=== PATIENT | female | born 1935 | race Caucasian/White ===

== ENCOUNTER 2017-01-28 14:25 | Observation (INO) | payer MEDICARE, OTHER ==
[~2017-01-28] VITALS: Ht 157.5 cm; Wt 63.5 kg
[~2017-01-28 14:25] MED LIST: ASPI325T PO; ATOR10TA PO; CLOP75 PO; DIOV320T PO; MECL25; NITR.4 SL; PROM25TA5 PO; VITA400T14 PO
[2017-01-28 14:28] VITALS: BP 223/101; PULSE 103; RESP 18; TEMP 97.8; O2SAT 95
[2017-01-28 15:04] VITALS: BP 198/86; PULSE 82; RESP 18; O2SAT 98
--- NOTE | 2017-01-28 15:20 | PD ---
HPI Chief Complaint: Chest Pain Time Seen by Provider: 15:07 Travel History International Travel<30 days: No Contact w/Intl Traveler<30days: No Traveled to known affect area: No History of Present Illness HPI 81-year-old female came to the emergency room with history of dizziness and chest discomfort. Also her blood pressure has been running high. Patient attributes all this to the GoLYTELY that she has started taking for bowel prep for her colonoscopy. Her blood pressure was more than 190 systolic in triage. She says she has a headache as well. The chest pain she said she couldn't describe but just feels like it is there and pointed to the left side of her chest. Patient is elderly and seemed anxious. Her headache is bitemporal. None of the pains are radiating. 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 [facility] Past Medical History Narrative Medical List of her past medical, surgical, social and family history is reviewed from the nursing note. 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 weather) Coronary Artery Disease: Yes Diabetes: No Diminished Hearing: No Endocrine: No Gastrointestinal Disorders: Yes GERD: Yes Genitourinary: No Hiatal Hernia: No Hypertension: Yes Immune Disorder: No Implanted Vascular Access Dvce: Yes Musculoskeletal: No Neurologic: No Psychiatric: No Reproductive: No Respiratory: Yes Immunizations Current: No Myocardial Infarction: No Sleep Apnea: No Ulcer: Yes Menopausal: Yes Past Surgical History AICD: Yes Body Medical Devices: RODS IN BOTH LOWER EXTREMITIES Cholecystectomy: Yes Coronary Artery Bypass Graft: No Coronary Stent: Yes (MULTIPLE PROCEDURES) Genitourinary Surgery: Yes (BLADDER REPAIR) Hysterectomy: Yes Pacemaker: Yes Tonsillectomy: Yes Other Surgery: Yes (bladder repair, femoral hardik placement, hysterectomy, tonsillectomy) Social History Alcohol Use: No Tobacco Use: No Substance Use: No Allergies-Medications (Allergen,Severity, Reaction): Coded Allergies: Achromycin V (Verified Allergy, Severe, SOB, HIVES, 01/28/17) Amoxicillin (Verified Allergy, Severe, ANAPHYLAXIS, 01/28/17) Ampicillin (Verified Allergy, Severe, SOB, HIVES, 01/28/17) Bactrim (Verified Allergy, Severe, SOB, HIVES, 01/28/17) Benadryl (Verified Allergy, Severe, SOB, HIVES, 01/28/17) E-Mycin (Verified Allergy, Severe, SOB, HIVES, 01/28/17) Keflex (Verified Allergy, Severe, SOB, HIVES, 01/28/17) Macrodantin (Verified Allergy, Severe, SOB, HIVES, 01/28/17) Penicillin (Verified Allergy, Severe, ANAPHYLAXIS, 01/28/17) Pyridium (Verified Allergy, Severe, SOB, HIVES, 01/28/17) Codeine (Verified Allergy, Intermediate, HIVES, 01/28/17) Adenosine (Verified Allergy, Unknown, 01/28/17) PT DOESN'T RECALL Avelox (Verified Allergy, Unknown, 01/28/17) PT DOESN'T RECALL Contrast Media (Verified Allergy, Unknown, 01/28/17) PT DOESN'T RECALL Comments List of her allergies reviewed from the nursing note. Reported Meds & Prescriptions Reported Meds & Active Scripts Active Reported Promethazine (Promethazine HCl) 12.5 Mg Tab 12.5 Mg PO Q6H PRN Diovan (Valsartan) 320 Mg Tab 320 Mg PO DAILY Nitrostat SL (Nitroglycerin) 0.4 Mg Subl 0.4 Mg SL DIRECTED PRN 1 tablet under the tongue as needed for chest pain. Repeat every 5 minutes for a total of 3 DOSES or call 911 if NO relief. Meclizine (Meclizine HCl) 25 Mg Chew 25 Mg CHEW DIRECTED PRN Ergocalciferol 50,000 Unit Cap 50,000 Units PO Q7D Plavix (Clopidogrel Bisulfate) 75 Mg Tab 75 Mg PO DAILY Narrative Medication List of her home medications reviewed from the nursing note. Review of Systems Except as stated in HPI: all other systems reviewed are Neg Physical Exam Narrative GENERAL: Awake, alert, elderly, anxious, mild distress SKIN: Warm and dry. HEAD: Atraumatic. Normocephalic. EYES: Pupils equal and round. No scleral icterus. No injection or drainage. ENT: No nasal bleeding or discharge. Mucous membranes pink and moist. NECK: Trachea midline. No JVD. CARDIOVASCULAR: Regular rate and rhythm. No murmur appreciated. RESPIRATORY: No accessory muscle use. Clear to auscultation. Breath sounds equal bilaterally. GASTROINTESTINAL: Abdomen soft, non-tender, nondistended. Hepatic and splenic margins not palpable. MUSCULOSKELETAL: No obvious deformities. No clubbing. No cyanosis. No edema. NEUROLOGICAL: Awake and alert. No obvious cranial nerve deficits. Motor grossly within normal limits. Normal speech. PSYCHIATRIC: Appropriate mood and affect; insight and judgment normal. Data Data Last Documented VS Vital Signs Date Time Temp Pulse Resp B/P Pulse Ox O2 Delivery O2 Flow Rate FiO2 01/28/17 17:41 82 16 160/100 98 Room Air 01/28/17 14:28 97.8 Orders Electrocardiogram (01/28/17 ) Ckmb (Isoenzyme) Profile (01/28/17 14:55) Complete Blood Count With Diff (01/28/17 14:55) Comprehensive Metabolic Panel (01/28/17 14:55) Magnesium (Mg) (01/28/17 14:55) Prothrombin Time / Inr (Pt) (01/28/17 14:55) Act Partial Throm Time (Ptt) (01/28/17 14:55) Troponin I (01/28/17 14:55) Lipase (01/28/17 14:56) Chest, Pa & Lat (01/28/17 ) CKMB (01/28/17 15:22) CKMB% (01/28/17 15:22) Clonidine (Catapres) (01/28/17 16:45) Ct Brain W/O Iv Contrast(Rout) (01/28/17 ) Admit Order (Ed Use Only) (01/28/17 17:57) Labs Laboratory Tests Test 01/28/17 15:22 White Blood Count 8.6 TH/MM3 Red Blood Count 5.25 MIL/MM3 Hemoglobin 14.7 GM/DL Hematocrit 43.3 % Mean Corpuscular Volume 82.5 FL Mean Corpuscular Hemoglobin 27.9 PG Mean Corpuscular Hemoglobin 33.9 % Concent Red Cell Distribution Width 13.0 % Platelet Count 242 TH/MM3 Mean Platelet Volume 8.7 FL Neutrophils (%) (Auto) % Lymphocytes (%) (Auto) % Monocytes (%) (Auto) % Eosinophils (%) (Auto) % Basophils (%) (Auto) % Neutrophils # (Auto) TH/MM3 Lymphocytes # (Auto) TH/MM3 Monocytes # (Auto) TH/MM3 Eosinophils # (Auto) TH/MM3 Basophils # (Auto) TH/MM3 CBC Comment AUTO DIFF Differential Total Cells 100 Counted Neutrophils % (Manual) 78 % Band Neutrophils % 1 % Lymphocytes % 17 % Monocytes % 4 % Neutrophils # (Manual) 6.8 TH/MM3 Differential Comment FINAL DIFF MANUAL Platelet Estimate NORMAL Platelet Morphology Comment NORMAL Prothrombin Time 10.8 SEC Prothromb Time International 1.0 RATIO Ratio Activated Partial 28.8 SEC Thromboplast Time Sodium Level 139 MEQ/L Potassium Level 4.6 MEQ/L Chloride Level 101 MEQ/L Carbon Dioxide Level 28.0 MEQ/L Anion Gap 10 MEQ/L Blood Urea Nitrogen 7 MG/DL Creatinine 1.00 MG/DL Estimat Glomerular Filtration 53 ML/MIN Rate Random Glucose 92 MG/DL Calcium Level 9.7 MG/DL Magnesium Level 2.3 MG/DL Total Bilirubin 0.7 MG/DL Aspartate Amino Transf 22 U/L (AST/SGOT) Alanine Aminotransferase 16 U/L (ALT/SGPT) Alkaline Phosphatase 71 U/L Total Creatine Kinase 149 U/L Creatine Kinase MB 1.4 NG/ML Troponin I LESS THAN 0.02 NG/ML Total Protein 8.1 GM/DL Albumin 4.5 GM/DL Lipase 192 U/L [facility] Medical Decision Making Medical Screen Exam Complete: Yes Emergency Medical Condition: Yes Medical Record Reviewed: Yes Interpretation(s) Twelve-lead EKG was reviewed by me. Normal sinus rhythm, normal axis, left bundle branch block. Heart rate of 84 bpm. Differential Diagnosis ACS, intracranial bleed, non-STEMI, hypertension Narrative Course 5:19 PM blood test results of back and within normal limits. CAT scan of the head is waiting to be done and resulted. Procedures EKG Prior to Arrival: No Scripts Lactobacillus Acidophilus (Lactinex)1 Chew1 Tab CHEW DAILY #14 TAB Ref 0 Prov:Fransisca Vitale MD 01/31/17 Dicyclomine 10 Mg Cap10 Mg PO TID #30 CAP Ref 0 Prov:Fransisca Vitale MD 01/30/17 Jorge Prather MD Jan 28, 2017 15:20
[2017-01-28] MEDS ORDERED: PROM12.54 PO (15:30)
[2017-01-28] MEDS ORDERED: MECL25CH CHEW (15:30)
[2017-01-28] MEDS ORDERED: DIOV320T PO (15:30)
[2017-01-28] MEDS ORDERED: NITR0.4S SL (15:30)
[2017-01-28] MEDS ORDERED: PLAV75TA29 PO (15:30)
[2017-01-28] MEDS ORDERED: ERGO1CAP30 PO (15:30)
[2017-01-28 15:41] LABS: HEMATOCRIT 43.3 % (35.0-46.0); MEAN CELL VOLUME 82.5 FL (80.0-100.0); MEAN CORPUSCULAR HEMOGLOBIN 27.9 PG (27.0-34.0); MEAN CORPUSCULAR HGB CONC 33.9 % (32.0-36.0); PLATELET COUNT 242 TH/MM3 (150-450); RED BLOOD COUNT 5.25 MIL/MM3 (4.00-5.30); WHITE BLOOD COUNT 8.6 TH/MM3 (4.0-11.0)
--- NOTE | 2017-01-28 15:43 | RADRPT ---
EXAM DATE/TIME: 01/28/2017 15:46 [facility] COMPARISON: CHEST PA & LAT, September 29, 2014, 15:02. INDICATIONS : Chest pain. Short of breath. MEDICAL HISTORY : Myocardial infarction. Congestive heart failure. Coronary artery disease. Carcinoma, cervical. SURGICAL HISTORY : Pacemaker. Tonsillectomy. Cholecystectomy. Cardiac cath. Bladder repair. Bilateral knee repair. Loop recorder insertion. ENCOUNTER: Initial ACUITY: 2 days PAIN SCORE: 5/10 LOCATION: Left middle chest FINDINGS: PA and lateral views of the chest demonstrate the lungs to be symmetrically aerated without evidence of mass, infiltrate or effusion. The cardiomediastinal contours are unremarkable. Osseous structure s are intact. There is a loop recorder in the chest. CONCLUSION: No acute disease. Franky Bourne MD on January 28, 2017 at 15:39 Board Certified Radiologist. This report was verified electronically.
[2017-01-28 15:51] LABS: HEMO FLAGS AUTO DIFF
[2017-01-28 16:05] LABS: APTT (PATIENT) 28.8 SEC (24.3-30.1); PROTHROMBIN TIME - PATIENT 10.8 SEC (9.8-11.6)
[2017-01-28 16:20] LABS: ALKALINE PHOSPHATASE 71 U/L (45-117); ALT (GPT) 16 U/L (10-53); ANION GAP 10 MEQ/L (5-15); AST (GOT) 22 U/L (15-37); BLOOD UREA NITROGEN 7 MG/DL (7-18); CHLORIDE 101 MEQ/L (98-107); CREATINE KINASE 149 U/L (26-192); GLOMERULAR FILTRATION RATE 53 ML/MIN (>89); MAGNESIUM 2.3 MG/DL (1.5-2.5); POTASSIUM 4.6 MEQ/L (3.5-5.1); SODIUM (NA) 139 MEQ/L (136-145); TOTAL BILIRUBIN ADULT 0.7 MG/DL (0.2-1.0)
[2017-01-28 16:33] LABS: CKMB 1.4 NG/ML (0.5-3.6)
[2017-01-28] MEDS ORDERED: cloNIDine HCL 0.1 MG TAB PO ONE (16:45)
[2017-01-28 16:50] LABS: BANDS 1 % (0-6); NEUTROPHIL # MANUAL DIFF 6.8 TH/MM3 (1.8-7.7); POLYS (SEG NEUTROPHILS) 78 % (16-70); WBC DIFF SAMPLE 100
[2017-01-28 16:53] LABS: PLATELET ESTIMATE SMEAR NORMAL (NORMAL); PLATELET MORPHOLOGY NORMAL (NORMAL); SCAN/DIFF FINAL DIFF MANUAL
[2017-01-28 17:41] VITALS: BP 160/100; PULSE 82; RESP 16; O2SAT 98
--- NOTE | 2017-01-28 18:03 | RADRPT ---
EXAM DATE/TIME: 01/28/2017 17:34 [facility] COMPARISON: CT BRAIN W/O CONTRAST, May 03, 2014, 12:58. INDICATIONS : Dizziness. RADIATION DOSE: 33.44 CTDIvol (mGy) MEDICAL HISTORY : Cardiovascular disease. Hypertension. Carcinoma, not otherwise specified. SURGICAL HISTORY : Cholecystectomy. ENCOUNTER: Initial ACUITY: 1 day PAIN SCALE: 0/10 LOCATION: cranial TECHNIQUE: Multiple contiguous axial images were obtained of the head. Using automated exposure control and adj ustment of the mA and/or kV according to patient size, radiation dose was kept as low as reasonably a chievable to obtain optimal diagnostic quality images. FINDINGS: CEREBRUM: The ventricles are normal for age. No evidence of midline shift, mass lesion, hemorrhage or acute in farction. No extra-axial fluid collections are seen. POSTERIOR FOSSA: The cerebellum and brainstem are intact. The 4th ventricle is midline. The cerebellopontine angle i s unremarkable. EXTRACRANIAL: The visualized portion of the orbits is intact. SKULL: The calvaria is intact. No evidence of skull fracture. CONCLUSION: Stable exam compared to prior study. No evidence of acute infarct, hemorrhage, mass or edema. Intact calvarium. Jose Bishop MD on January 28, 2017 at 18:00 Board Certified Radiologist. This report was verified electronically.
[2017-01-28] MEDS ORDERED: BISACODYL 10 MG SUPP PR PRN (18:15)
[2017-01-28] MEDS ORDERED: MAGNESIUM HYDROXIDE SUSP 30 ML CUP PO PRN (18:15)
[2017-01-28] MEDS ORDERED: ACETAMINOPHEN 325 MG TAB PO PRN (18:15)
[2017-01-28] MEDS ORDERED: PROCHLORPERAZINE 25 MG SUPP PR PRN (18:15)
[2017-01-28] MEDS ORDERED: ENALAPRILAT 2.5 MG/2 ML VIAL IV PUSH PRN (18:15)
[2017-01-28] MEDS ORDERED: SODIUM CHLORIDE 0.9% FLUSH 5 ML FLUSH FLUSH PRN (18:15)
[2017-01-28] MEDS ORDERED: cloNIDine HCL 0.1 MG TAB PO PRN (18:15)
[2017-01-28] MEDS ORDERED: ONDANSETRON HCL 4 MG/2 ML VIAL IVP PRN (18:15)
[2017-01-28] MEDS ORDERED: SENNOSIDES 8.6 MG TAB PO PRN (18:15)
[2017-01-28] MEDS ORDERED: MECLIZINE HCL 25 MG TAB PO PRN (18:15)
[2017-01-28 18:22] VITALS: O2SAT 98
[2017-01-28] MEDS ORDERED: PROMETHAZINE HCL 25 MG TAB PO PRN (18:30)
[2017-01-28] MEDS ORDERED: PILL SPLITTER OTHER PRN (18:45)
--- NOTE | 2017-01-28 19:23 | HHI.HP ---
[facility] Service [facility] Primary Care Physician Blanca Nolan MD Admission Diagnosis chest pain, dizziness, headache, hypertension Diagnoses: Chief Complaint: chest pain, nausea, dizziness Travel History International Travel<30 Days: No Contact w/Intl Traveler <30 Da: No Traveled to Known Affected Are: No History of Present Illness 81-year-old female of came to the emergency room with history of dizziness and chest discomfort. Also her blood pressure has been running high. Patient attributes all this to the GoLYTELY that she has started taking for bowel prep for her colonoscopy. Her systolic blood pressure on admission was on 190s. She says she has associated headache as well. No change in vision or motor deficit. [place] dizzy however did not fall. The chest pain she said she couldn't describe but just feels like it is there and pointed to the left side of her chest. Patient is elderly and seemed anxious. Her headache is bitemporal. None of the pains are radiating. 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 Patient also reports nausea but no vomiting. Denies fever or chills. Had diarrhea 2/2 bowel prep. Review of Systems Except as stated in HPI: all other systems reviewed are Neg 12 system ROS reviewed and negative except as stated in HPI Past Family Social History Past Medical History CHF with AICD CAD s/p angioplasty and drug-eluting stent placed in mid-left circumflex 06/25/16 Hypertension Chronic left bundle branch block Paroxysmal atrial tachycardia GIB, GERD H/ o cervical CA H/o Skin Ca Past Surgical History AICD, multiple cardiac cath Femoral hardik placement, Rods in bilateral lower extremities; full left leg and right leg from knee down due to crush injury Hysterectomy Tonsillectomy Urinary bladder repair Cholecystectomy Reported Medications Last Impressions Chest X-Ray 01/28/17 0000 Signed Impressions: Service Date/Time: Saturday, January 28, 2017 15:46 - CONCLUSION: No acute disease. Franky Bourne MD Allergies: Coded Allergies: Achromycin V (Verified Allergy, Severe, SOB, HIVES, 01/28/17) Amoxicillin (Verified Allergy, Severe, ANAPHYLAXIS, 01/28/17) Ampicillin (Verified Allergy, Severe, SOB, HIVES, 01/28/17) Bactrim (Verified Allergy, Severe, SOB, HIVES, 01/28/17) Benadryl (Verified Allergy, Severe, SOB, HIVES, 01/28/17) E-Mycin (Verified Allergy, Severe, SOB, HIVES, 01/28/17) Keflex (Verified Allergy, Severe, SOB, HIVES, 01/28/17) Macrodantin (Verified Allergy, Severe, SOB, HIVES, 01/28/17) Penicillin (Verified Allergy, Severe, ANAPHYLAXIS, 01/28/17) Pyridium (Verified Allergy, Severe, SOB, HIVES, 01/28/17) Codeine (Verified Allergy, Intermediate, HIVES, 01/28/17) Adenosine (Verified Allergy, Unknown, 01/28/17) PT DOESN'T RECALL Avelox (Verified Allergy, Unknown, 01/28/17) PT DOESN'T RECALL Contrast Media (Verified Allergy, Unknown, 01/28/17) PT DOESN'T RECALL Family History Heart problems runs in family . Sister with CAD. Sister with DM Social History Denies EtOH use, tobacco use, illicit drug use. Physical Exam Vital Signs Vital Signs Date Time Temp Pulse Resp B/P Pulse Ox O2 Delivery O2 Flow Rate FiO2 01/28/17 18:22 98 21 01/28/17 17:41 82 16 160/100 98 Room Air 01/28/17 15:04 82 18 198/86 98 Room Air 01/28/17 14:28 97.8 103 18 223/101 95 Physical Exam GENERAL: Pleasant elderly female, well nourished, well developed, anxious SKIN: No rashes, ecchymoses or lesions. Cool and dry. HEAD: Atraumatic. Normocephalic. No temporal or scalp tenderness. EYES: Pupils equal round and reactive. Extraocular motions intact. No scleral icterus. No injection or drainage. ENT: Nose without bleeding, purulent drainage or septal hematoma. Throat without erythema, tonsillar hypertrophy or exudate. Uvula midline. Airway patent. NECK: Trachea midline. No JVD or lymphadenopathy. Supple, nontender, no meningeal signs. CARDIOVASCULAR: Regular rate and rhythm without murmurs, gallops, or rubs. RESPIRATORY: Clear to auscultation. Breath sounds equal bilaterally. No wheezes , rales, or rhonchi. GASTROINTESTINAL: Abdomen soft, non-tender, nondistended. No hepato-splenomegaly , or palpable masses. No guarding. MUSCULOSKELETAL: Extremities without clubbing, cyanosis, or edema. No joint tenderness, effusion, or edema noted. No calf tenderness. Negative Homans sign bilaterally. NEUROLOGICAL: Awake and alert. Cranial nerves II through XII intact. Motor and sensory grossly within normal limits. Five out of 5 muscle strength in all muscle groups. Normal speech. Laboratory Laboratory Tests Test 01/28/17 15:22 White Blood Count 8.6 Red Blood Count 5.25 Hemoglobin 14.7 Hematocrit 43.3 Mean Corpuscular Volume 82.5 Mean Corpuscular Hemoglobin 27.9 Mean Corpuscular Hemoglobin 33.9 Concent Red Cell Distribution Width 13.0 Platelet Count 242 Mean Platelet Volume 8.7 Neutrophils (%) (Auto) Lymphocytes (%) (Auto) Monocytes (%) (Auto) Eosinophils (%) (Auto) Basophils (%) (Auto) Neutrophils # (Auto) Lymphocytes # (Auto) Monocytes # (Auto) Eosinophils # (Auto) Basophils # (Auto) CBC Comment AUTO DIFF Differential Total Cells 100 Counted Neutrophils % (Manual) 78 Band Neutrophils % 1 Lymphocytes % 17 Monocytes % 4 Neutrophils # (Manual) 6.8 Differential Comment FINAL DIFF MANUAL Platelet Estimate NORMAL Platelet Morphology Comment NORMAL Prothrombin Time 10.8 Prothromb Time International 1.0 Ratio Activated Partial 28.8 Thromboplast Time Sodium Level 139 Potassium Level 4.6 Chloride Level 101 Carbon Dioxide Level 28.0 Anion Gap 10 Blood Urea Nitrogen 7 Creatinine 1.00 Estimat Glomerular Filtration 53 Rate Random Glucose 92 Calcium Level 9.7 Magnesium Level 2.3 Total Bilirubin 0.7 Aspartate Amino Transf 22 (AST/SGOT) Alanine Aminotransferase 16 (ALT/SGPT) Alkaline Phosphatase 71 Total Creatine Kinase 149 Creatine Kinase MB 1.4 Troponin I LESS THAN 0.02 Total Protein 8.1 Albumin 4.5 Lipase 192 Result Diagram: 01/28/17 1522 01/28/17 1522 Imaging Last Impressions Chest X-Ray 01/28/17 0000 Signed Impressions: Service Date/Time: Saturday, January 28, 2017 15:46 - CONCLUSION: No acute disease. Franky Bourne MD Assessment and Plan Assessment and Plan Chest pain. H/o CAD with multiple stents follows with Dr Cagle cards. CHF, has AICD Nausea EKG was reviewed and findings discussed with ED physician: Normal sinus rhythm, normal axis, left bundle branch block. Heart rate of 84 bpm. No change from bnig Trop neg x1 . Will trend troponin Will repeat EKG Patient is not taking any anticoagulation as she has a recent h/o GIB and follows with GI Dr Calderon. She was supposed to have colonoscopy and EGD done today however she came to the ED instead because she had chest pain associated with nausea She also has diarrhea however she took the bowel prep at home and she is attributing the diarrhea 2/2 bowel prep. Will consult her GI specialist Dr Simmons. Labs normal Do carotid US and 2D ECHO Monitor on telemetry. neuro checks. Ativan as need for anxiety Consult her cardiology Dr Cagle Resume home meds, add antihypertensive IV prn NG SL for CP DVT ppx with SCD/TEDs Code Status full Discussed Condition With patient, nurse, ED physician Fransisca Vitale MD Jan 28, 2017 19:23
[2017-01-28] MEDS ORDERED: ENOXAPARIN SODIUM 40 MG/0.4 ML SYRINGE SQ SCH (20:00)
[2017-01-28] MEDS: SODIUM CHLORIDE 0.9% FLUSH 5 ML FLUSH FLUSH SCH (20:47)
[2017-01-28 20:51] VITALS: BP 141/85; PULSE 69; RESP 18; TEMP 97.6; O2SAT 97
[2017-01-28] MEDS ORDERED: LORazepam 0.5 MG TAB PO PRN (23:00)
[2017-01-28 23:04] VITALS: PULSE 65
[2017-01-29] VITALS (8 sets, daily range): BP systolic 122–198; BP diastolic 65–95; PULSE 64–93; RESP 17–18; TEMP 95.4–98.2; O2SAT 93–100
--- NOTE | 2017-01-29 01:38 | RADRPT ---
EXAM DATE/TIME: 01/28/2017 23:51 [facility] COMPARISON: No previous studies available for comparison. INDICATIONS : Syncope. MEDICAL HISTORY : Chronic obstructive pulmonary disease. Gastroesophageal reflux disease. Congestive heart failure. Zi cardial infarction. Coronary artery disease. Irregular heartbeat. Hypertension. Ulcer. Skin cancer. C ervical cancer. Measles. Blood transfusion. SURGICAL HISTORY : Tonsillectomy. Hysterectomy. Cholecystectomy. Pacemaker. Bladder repair. Bilateral rods in legs. Delta nary artery stent. ENCOUNTER: Initial ACUITY: 1 day PAIN SCORE: 0/10 LOCATION: Bilateral neck PEAK SYSTOLIC VELOCITIES (cm/sec): ICA/CCA RATIO: Right: 1.8 Left: 1.2 ICA: Right: 91 Left: 87 CCA: Right: 51 Left: 73 ECA: Right: 74 Left: 78 VERTEBRAL: Right: 64 antegrade Left: 57 antegrade Elevated flow velocities and ICA/CCA ratios have been found to correlate with increased degrees of vessel stenosis, calculated as percentage of diameter relative to a normal segment of distal ICA/CCA FINDINGS: RIGHT CAROTID: No significant stenosis is visualized. The waveforms are within normal limits. LEFT CAROTID: No significant stenosis is visualized. The waveforms are within normal limits. VERTEBRAL ARTERIES: Antegrade flow is seen in both vertebral arteries. MISCELLANEOUS: None. CONCLUSION: Mild calcified plaque at the carotid bulbs. No evidence of hemodynamically significant carotid stenos is. Willam Levin MD on January 29, 2017 at 1:36 Board Certified Radiologist. This report was verified electronically.
--- NOTE | 2017-01-29 07:31 | HHI.PR ---
Subjective Remarks Feels improving. Nausea and vomiting improved overnight. No chest pain overnight. Denies palpitations. Feels dizzy says she did not eat in 3 days much. Objective Vitals Vital Signs Date Time Temp Pulse Resp B/P Pulse Ox O2 Delivery O2 Flow Rate FiO2 01/29/17 04:29 98.1 79 18 126/68 97 01/29/17 01:35 98.2 84 18 122/73 97 01/28/17 23:04 65 01/28/17 20:51 97.6 69 18 141/85 97 01/28/17 19:49 21 01/28/17 18:22 98 21 01/28/17 17:41 82 16 160/100 98 Room Air 01/28/17 15:04 82 18 198/86 98 Room Air 01/28/17 14:28 97.8 103 18 223/101 95 Result Diagram: 01/28/17 1522 01/28/17 1522 Imaging Last Impressions Chest X-Ray 01/28/17 0000 Signed Impressions: Service Date/Time: Saturday, January 28, 2017 15:46 - CONCLUSION: No acute disease. Franky Bourne MD Objective Remarks GENERAL: Pleasant elderly female, well nourished, well developed, anxious SKIN: No rashes, ecchymoses or lesions. Cool and dry. HEAD: Atraumatic. Normocephalic. No temporal or scalp tenderness. EYES: Pupils equal round and reactive. Extraocular motions intact. No scleral icterus. No injection or drainage. ENT: Nose without bleeding, purulent drainage or septal hematoma. Throat without erythema, tonsillar hypertrophy or exudate. Uvula midline. Airway patent. NECK: Trachea midline. No JVD or lymphadenopathy. Supple, nontender, no meningeal signs. CARDIOVASCULAR: Regular rate and rhythm without murmurs, gallops, or rubs. RESPIRATORY: Clear to auscultation. Breath sounds equal bilaterally. No wheezes , rales, or rhonchi. GASTROINTESTINAL: Abdomen soft, non-tender, nondistended. No hepato-splenomegaly , or palpable masses. No guarding. MUSCULOSKELETAL: Extremities without clubbing, cyanosis, or edema. No joint tenderness, effusion, or edema noted. No calf tenderness. Negative Homans sign bilaterally. NEUROLOGICAL: Awake and alert. Cranial nerves II through XII intact. Motor and sensory grossly within normal limits. Five out of 5 muscle strength in all muscle groups. Normal speech. A/P Assessment and Plan Chest pain. H/o CAD with multiple stents follows with Dr Gurjit laguerre. CHF, has AICD Nausea EKG was reviewed and findings discussed with ED physician: Normal sinus rhythm, normal axis, left bundle branch block. Heart rate of 84 bpm. No change from bing Trop neg x3 . EKG no change Patient is not taking any anticoagulation as she has a recent h/o GIB and follows with GI Dr Calderon. She was supposed to have colonoscopy and EGD done today however she came to the ED instead because she had chest pain associated with nausea She also has diarrhea however she took the bowel prep at home and she is attributing the diarrhea 2/2 bowel prep.Consult her GI specialist Dr Simmons. Boowel prep and plan for colonoscopy tomorrow. Labs normal Carotid US normal 2D ECHO pending Seen by Dr Moya plan for stress test Monitor on telemetry. neuro checks. Ativan as need for anxiety Consult her cardiology Dr Cagle Resume home meds, add antihypertensive IV prn NG SL for CP DVT ppx with SCD/TEDs Code Status full Discussed Condition With patient, nurse, Dr Simmons from GI Fransisca Vitale MD Jan 29, 2017 07:31
[2017-01-29] MEDS ORDERED: SODIUM CHLORID 0.9% 500 ML INJ 500 ML IV ONE (07:45)
[2017-01-29 08:04] LABS: ALKALINE PHOSPHATASE 70 U/L (45-117); ALT (GPT) 15 U/L (10-53); ANION GAP 9 MEQ/L (5-15); AST (GOT) 15 U/L (15-37); BICARBONATE 28.2 MEQ/L (21.0-32.0); BLOOD UREA NITROGEN 10 MG/DL (7-18); CHLORIDE 105 MEQ/L (98-107); GLOMERULAR FILTRATION RATE 56 ML/MIN (>89); POTASSIUM 3.8 MEQ/L (3.5-5.1); SODIUM (NA) 142 MEQ/L (136-145); TOTAL BILIRUBIN ADULT 0.7 MG/DL (0.2-1.0)
[2017-01-29] MEDS: SODIUM CHLORIDE 0.9% FLUSH 5 ML FLUSH FLUSH SCH ×2 (08:04→21:00)
[2017-01-29] MEDS ORDERED: CLOPIDOGREL 75 MG TAB PO SCH (09:00)
[2017-01-29] MEDS: VALSARTAN 160 MG TAB PO SCH (10:44)
[2017-01-29] MEDS: PANTOPRAZOLE SOD 40 MG DELAYED RELEASE TAB PO SCH (10:45)
--- NOTE | 2017-01-29 10:46 | PD.CONS ---
HPI History of Present Illness This is a 81 year old female who was scheduled to have a colonoscopy today as an outpatient. She started her prep yesterday of Magnesium Citrate then developed HTN, dizziness and chest discomfort. She has an associated headache as well. She has been having diarrhea for the past month which happens after every meal, results in 3 to 4 stools a day. Her stools are loose and watery but has not seen any blood in stools. She has generalized abdominal tenderness on exam today. She was on Plavix which is on hold for the colonoscopy, last dose was 4 days ago. Denies N/V. Has a Hx of GI bleed in the past last EGD was in 2014 and showed gastritis and antral ulcer, she cannot remember when her last colonoscopy was. She has chest pain has Hx of cardiac stents and cardiology is consulted. Will plan on colonoscopy/EGD in am and order CT abdomen to evaluate abdominal pain. (Tyra Chatman) PFSH Past Medical History CHF with AICD CAD s/p angioplasty and drug-eluting stent placed in mid-left circumflex 06/25/16 Hypertension Chronic left bundle branch block Paroxysmal atrial tachycardia GIB, GERD H/ o cervical CA H/o Skin Ca Past Surgical History AICD, multiple cardiac cath Femoral hardik placement, Rods in bilateral lower extremities; full left leg and right leg from knee down due to crush injury Hysterectomy Tonsillectomy Urinary bladder repair Cholecystectomy colonoscopy/EGD (Tyra Chatman) Coded Allergies: Achromycin V (Verified Allergy, Severe, SOB, HIVES, 01/28/17) Amoxicillin (Verified Allergy, Severe, ANAPHYLAXIS, 01/28/17) Ampicillin (Verified Allergy, Severe, SOB, HIVES, 01/28/17) Bactrim (Verified Allergy, Severe, SOB, HIVES, 01/28/17) Benadryl (Verified Allergy, Severe, SOB, HIVES, 01/28/17) E-Mycin (Verified Allergy, Severe, SOB, HIVES, 01/28/17) Keflex (Verified Allergy, Severe, SOB, HIVES, 01/28/17) Macrodantin (Verified Allergy, Severe, SOB, HIVES, 01/28/17) Penicillin (Verified Allergy, Severe, ANAPHYLAXIS, 01/28/17) Pyridium (Verified Allergy, Severe, SOB, HIVES, 01/28/17) Codeine (Verified Allergy, Intermediate, HIVES, 01/28/17) Adenosine (Verified Allergy, Unknown, 01/28/17) PT DOESN'T RECALL Avelox (Verified Allergy, Unknown, 01/28/17) PT DOESN'T RECALL Contrast Media (Verified Allergy, Unknown, 01/28/17) PT DOESN'T RECALL Medications Reported Meds & Active Scripts Active Reported Promethazine (Promethazine HCl) 12.5 Mg Tab 12.5 Mg PO Q6H PRN Diovan (Valsartan) 320 Mg Tab 320 Mg PO DAILY Nitrostat SL (Nitroglycerin) 0.4 Mg Subl 0.4 Mg SL DIRECTED PRN 1 tablet under the tongue as needed for chest pain. Repeat every 5 minutes for a total of 3 DOSES or call 911 if NO relief. Meclizine (Meclizine HCl) 25 Mg Chew 25 Mg CHEW DIRECTED PRN Ergocalciferol 50,000 Unit Cap 50,000 Units PO Q7D Plavix (Clopidogrel Bisulfate) 75 Mg Tab 75 Mg PO DAILY Family History Heart problems runs in family . Sister with CAD. Sister with DM Social History Denies EtOH use, tobacco use, illicit drug use. (Tyra Chatman) Review of Systems Gastrointestinal: COMPLAINS OF: Abdominal pain, Diarrhea (Tyra Chatman) GI Exam Vitals I&O Vital Signs Date Time Temp Pulse Resp B/P Pulse Ox O2 Delivery O2 Flow Rate FiO2 01/29/17 07:46 95.8 70 17 151/76 93 01/29/17 04:29 98.1 79 18 126/68 97 01/29/17 01:35 98.2 84 18 122/73 97 01/28/17 23:04 65 01/28/17 20:51 97.6 69 18 141/85 97 01/28/17 19:49 21 01/28/17 18:22 98 21 01/28/17 17:41 82 16 160/100 98 Room Air 01/28/17 15:04 82 18 198/86 98 Room Air 01/28/17 14:28 97.8 103 18 223/101 95 Imaging Last Impressions Chest X-Ray 01/28/17 0000 Signed Impressions: Service Date/Time: Saturday, January 28, 2017 15:46 - CONCLUSION: No acute disease. Franky Bourne MD Laboratory Test 01/28/17 01/28/17 01/29/17 01/29/17 15:22 21:36 00:29 07:09 White Blood Count 8.6 TH/MM3 Red Blood Count 5.25 MIL/MM3 Hemoglobin 14.7 GM/DL Hematocrit 43.3 % Mean Corpuscular Volume 82.5 FL Mean Corpuscular Hemoglobin 27.9 PG Mean Corpuscular Hemoglobin 33.9 % Concent Red Cell Distribution Width 13.0 % Platelet Count 242 TH/MM3 Mean Platelet Volume 8.7 FL Neutrophils (%) (Auto) % Lymphocytes (%) (Auto) % Monocytes (%) (Auto) % Eosinophils (%) (Auto) % Basophils (%) (Auto) % Neutrophils # (Auto) TH/MM3 Lymphocytes # (Auto) TH/MM3 Monocytes # (Auto) TH/MM3 Eosinophils # (Auto) TH/MM3 Basophils # (Auto) TH/MM3 CBC Comment AUTO DIFF Differential Total Cells 100 Counted Neutrophils % (Manual) 78 % Band Neutrophils % 1 % Lymphocytes % 17 % Monocytes % 4 % Neutrophils # (Manual) 6.8 TH/MM3 Differential Comment FINAL DIFF MANUAL Platelet Estimate NORMAL Platelet Morphology Comment NORMAL Prothrombin Time 10.8 SEC Prothromb Time International 1.0 RATIO Ratio Activated Partial 28.8 SEC Thromboplast Time Sodium Level 139 MEQ/L 142 MEQ/L Potassium Level 4.6 MEQ/L 3.8 MEQ/L Chloride Level 101 MEQ/L 105 MEQ/L Carbon Dioxide Level 28.0 MEQ/L 28.2 MEQ/L Anion Gap 10 MEQ/L 9 MEQ/L Blood Urea Nitrogen 7 MG/DL 10 MG/DL Creatinine 1.00 MG/DL 0.95 MG/DL Estimat Glomerular Filtration 53 ML/MIN 56 ML/MIN Rate Random Glucose 92 MG/DL 89 MG/DL Calcium Level 9.7 MG/DL 8.8 MG/DL Magnesium Level 2.3 MG/DL Total Bilirubin 0.7 MG/DL 0.7 MG/DL Aspartate Amino Transf 22 U/L 15 U/L (AST/SGOT) Alanine Aminotransferase 16 U/L 15 U/L (ALT/SGPT) Alkaline Phosphatase 71 U/L 70 U/L Total Creatine Kinase 149 U/L Creatine Kinase MB 1.4 NG/ML Troponin I LESS THAN 0.02 LESS THAN 0.02 LESS THAN 0.02 NG/ML NG/ML NG/ML Total Protein 8.1 GM/DL 7.5 GM/DL Albumin 4.5 GM/DL 4.1 GM/DL Lipase 192 U/L Physical Examination HEENT: Pupils round and reactive to light; normocephalic; atraumatic; no jaundice. Throat is clear. NECK: Neck is supple, no JVD, no lymphadenopathy. CHEST: Chest is clear to auscultation and percussion. CARDIAC: Regular rate and rhythm with no murmur gallop or rubs. ABDOMEN: Soft, nondistended, tender generalized; no hepatosplenomegaly; bowel sounds are present in all four quadrants. EXTREMITIES: No clubbing, cyanosis, or edema. SKIN: Normal; no rash; no jaundice. WILDERNESS GUIDE: No focal deficits; alert and oriented times three. (Tyra Chatman) Assessment and Plan Assessment: (1) Abdominal pain (2) Diarrhea (3) Nausea (4) Chest pain Plan This is an 81 year old female who developed HTN and chest pain after starting GI prep of Magnesium citrate for a colonoscopy and EGD scheduled today as an outpatient. Also having generalized abdominal pain and tenderness. will order a CT abd/pelvis for evaluation of pain. She has chronic diarrhea after every meal with loose watery stools 3 to 4 a day for the past month. Has Hx of GI bleed in the past, she is not sure when she had last colonoscopy and EGD was in 2014 showing gastritis and antral ulcer. Also admitted with chest pain, cardiology has been consulted. Plan -Obtain consent for EGD/Colonoscopy in am -Schedule colonoscopy/EGD in am -Continue to hold Plavix -One bottle of Mg Citrate this evening -Clear liquid diet, NPO after midnight -CT abdomen/ Pelvis -Cardiology following chest pain -Continue PPI -Follow labs -Stool cultures -Supportive care -Further recommendations will follow Patient was seen and examined by myself and Dr. Gomez (Tyra Chatman) Physician Comments Seen and examined with IMAN, couldnot tolerate outpt. prep for colonoscopy so came to the hospital. Diarrhea and gerd as well as on going abdominal pain. CT with po contrast and egd/colonoscopy planned. Says has iv contrast allergy. Will follow, thank you (Valeria Gomez MD) Problem Qualifiers (1) Abdominal pain: Qualified Code: R10.84 - Generalized abdominal pain (2) Diarrhea: Qualified Code: R19.7 - Diarrhea, unspecified type (3) Chest pain: Qualified Code: R07.9 - Chest pain, unspecified type Tyra Chatman Jan 29, 2017 10:46 Valeria Gomez MD Jan 29, 2017 12:09
[2017-01-29] MEDS ORDERED: DIATRIZOATE MEGLUM/DIATRIZOATE SOD 9 ML CUP PO ONE (11:30)
--- NOTE | 2017-01-29 11:32 | MB ---
cc: BHARATH CA MD DATE OF CONSULTATION 01/29/2017 REASON FOR CONSULTATION Chest pain. HISTORY OF PRESENT ILLNESS Ms. Flores is an 81-year-old patient of my partner Dr. Cagle. She does have a history of CAD and last June underwent stenting of the mid-circumflex. At that time there was a 20% left main distal stenosis. The proximal LAD stent had 50% in-stent restenosis. The RCA has diffuse unchanged in-stent restenosis of 50%. Her EF was 65%. The patient this visit reports some dizziness and chest discomfort. She had been doing a bowel prep and notes that she had not had anything to eat or drink for two days. Her blood pressure was in the 190s on arrival. At this time she remains dizzy with sitting up but is otherwise asymptomatic. She did have some nausea but no vomiting and has had some diarrhea after the bowel prep. PAST MEDICAL HISTORY 1. CAD with stenting as described above. 2. CHF with AICD. 3. Hypertension. 4. Left bundle branch block. 5. GI bleed. 6. GERD. 7. Skin cancer. PAST SURGICAL HISTORY 1. Cardiac catheterization. 1. Femoral hardik placement. 2. Hysterectomy. 3. Tonsillectomy. 4. Cholecystectomy. ALLERGIES AMOXICILLIN. AMPICILLIN. BACTRIM. BENADRYL. ERYTHROMYCIN. KEFLEX. MACRODANTIN. PENICILLIN. PYRIDIUM. CODEINE. ADENOSINE. AVELOX. CONTRAST. SOCIAL HISTORY The patient does not drink or smoke. PHYSICAL EXAMINATION VITAL SIGNS: 98.1, 79, 18, 126/68.GENERAL: She is a well-appearing female who is in no apparent distress. NECK: Her neck is free from JVD. LUNGS: The lungs are bilaterally clear to auscultation. CARDIOVASCULAR EXAMINATION: She has a normal S1 and S2. I did not appreciate any murmurs, rubs or gallops. ABDOMEN: Soft. EXTREMITIES: Free from edema. LABORATORY DATA Current lab values show troponin of less than 0.02/less than 0.02/less than 0.02. EKG Left bundle branch block. IMPRESSION Chest pain - The patient certainly does have a history of prior CAD. She had stenting over the summer and has done well since. At this time she did present and was quite hypertensive. It is difficult to know if there is any association with her bowel prep. In any case I would like to have further evaluation with stress testing. She has an unknown reaction to adenosine. I do think we should use dobutamine. I will see if I can have this arranged. If this study is not ischemic, it is reasonable for her to be discharged home. Dizziness - The patient has been n.p.o. for quite some time. She may benefit from IV fluids particularly prior to dobutamine stress test. Carmina Lester/SSB /6:35 AM /9:55 AM
[2017-01-29] MEDS ORDERED: REGADENOSON INJ 0.4 MG/5 ML SYR ONE (13:07)
--- NOTE | 2017-01-29 14:22 | RADRPT ---
EXAM DATE/TIME: 01/29/2017 12:52 [facility] COMPARISON: MYOCARDIAL PERF PHARM SPECT, GATED W/EF, September 30, 2014, 11:12. INDICATIONS : Left chest discomfort, cardiac stents, congestive heart failure and pacemaker. Coronary atheroscleros is. Coronary artery disease. DOSE: 25.3 mCi Tc99m Myoview at stress. 8.5 mCi Tc99m Myoview at rest. 0.4 mg Lexiscan STRESS SYMPTOMS: Dyspnea. EJECTION FRACTION: 62% MEDICAL HISTORY : Hypertension. Chronic obstructive pulmonary disease. Carcinoma, basal cell. SURGICAL HISTORY : Pacemaker. Hysterectomy. Bladder repair and metal rods in legs. ENCOUNTER: Initial ACUITY: 1 day PAIN SCALE: 4/10 LOCATION: Left chest TECHNIQUE: The patient underwent pharmacologic stress with infusion of prescribed dose. Continuous ECG tracing was monitored during stress. Gated SPECT imaging was performed after stress and conventional SPECT i maging was performed at rest. The examination was performed on a SPECT/CT scanner, both attenuation and non-corrected datasets were reviewed. FINDINGS: DISTRIBUTION: The maximum perfused segment at stress is in the anterior wall. PERFUSION STUDY: The pattern of perfusion at stress is within normal limits. GATED STUDY: There is intact wall motion and thickening without hypokinetic or dyskinetic segments. CONCLUSION: No areas of ischemia are seen. RISK CATEGORY: Low (<1% Annual Mortality Rate) Franky Bourne MD on January 29, 2017 at 14:19 Board Certified Radiologist. This report was verified electronically.
--- NOTE | 2017-01-29 15:58 | EKG ---
Date Performed: 01/28/2017 Time Performed: 14:39:18 PTAGE: 81 years EKG: Sinus rhythm INTRAVENTRICULAR CONDUCTION DELAY LBBB Compared to prior tracing no significant change ABNORMAL ECG PREVIOUS TRACING 06/26/2016 @21.17.04 DOCTOR: Olegario Mack Interpretating Date/Time 01/29/2017 15:59:28
--- NOTE | 2017-01-29 16:00 | EKG ---
Date Performed: 01/28/2017 Time Performed: 21:39:07 PTAGE: 81 years EKG: Sinus rhythm LEFT BUNDLE BRANCH BLOCK Compared to prior tracing no significant change ABNORMAL ECG PREVIOUS TRACING : 01/28/2017 14.39 DOCTOR: Olegario Mack Interpretating Date/Time 01/29/2017 15:58:37
[2017-01-29] MEDS ORDERED: MAGNESIUM CITRATE SOLN 300 ML BTL PO ONE (17:00)
--- NOTE | 2017-01-29 17:36 | EC ---
Study Study Date:01/29/2017 STUDY CONCLUSIONS SUMMARY - Left ventricle: The cavity size was normal. Wall thickness was increased in a pattern of mild LVH. Systolic function was vigorous. The estimated ejection fraction was in the range of 65% to 70%. Wall motion was normal; there were no regional wall motion abnormalities. - Aortic valve: Valve area: 2.65cm^2 (Vmax). - Left atrium: The atrium was mildly dilated. If LV function is below 40, please consider prescribing an ACEI or ARB or document rationale for non-use. PROCEDURE DATA STUDY STATUS: Elective. Procedure: Transthoracic echocardiography. Image quality was good. Scanning was performed from the parasternal, apical, and subcostal acoustic windows. Study completion: The patient tolerated the procedure well. Transthoracic echocardiography. M-mode, complete 2D, complete spectral Doppler, and color Doppler. Height: Height: 62in. Weight: Weight: 138.7lb. Body mass index: BMI: 25.4kg/m^2. Body surface area: BSA: 1.64m^2. Patient status: Inpatient. CARDIAC ANATOMY LEFT VENTRICLE: The cavity size was normal. Wall thickness was increased in a pattern of mild LVH. Systolic function was vigorous. The estimated ejection fraction was in the range of 65% to 70%. Wall motion was normal; there were no regional wall motion abnormalities. AORTIC VALVE: Trileaflet; normal thickness leaflets. Doppler: Transvalvular velocity was within the normal range. There was no stenosis. No regurgitation. Valve area: 2.65cm^2 (Vmax). Indexed valve area: 1.62cm^2/m^2 (Vmax). AORTA: Aortic root: The aortic root was normal in size. MITRAL VALVE: Structurally normal valve. Doppler: Transvalvular velocity was within the normal range. There was no evidence for stenosis. Trace regurgitation. Valve area by pressure half-time: 3.86cm^2. Indexed valve area by pressure half-time: 2.35cm^2/m^2. LEFT ATRIUM: The atrium was mildly dilated. RIGHT VENTRICLE: The cavity size was normal. Wall thickness was normal. PULMONIC VALVE: Doppler: Transvalvular velocity was within the normal range. There was no evidence for stenosis. No regurgitation. TRICUSPID VALVE: Structurally normal valve. Doppler: Transvalvular velocity was within the normal range. Trace to mild regurgitation. Peak gradient: 29mm Hg (D). PULMONARY ARTERY: The main pulmonary artery was normal-sized. Systolic pressure was within the normal range. RIGHT ATRIUM: The atrium was normal in size. PERICARDIUM: There was no pericardial effusion. SYSTEMIC VEINS: Inferior vena cava: The vessel was normal in size. Patient weight: 138.7lb _Ejection fraction:_ 65-75% _Fractional shortening:_ 32% up to 5Kg 5-11.5Kg 11.6-22.9Kg 23-45Kg 45-57Kg Aortic Root 7-13 <17 13-22 17-27 17-27 LA diam 6-13 <23 24-38 33-47 37-40 RVID 10-17 7-15 7-15 7-18 8-17 LVIDd 12-22 <32 24-38 33-47 37-40 LVPW 2-4 3-6 5-7 6-8 7-8 IVS 2-4 3-6 5-7 6-8 7-8 BASIC MEASUREMENTS ADULT NORMAL Left ventricle LV internal dimension, ED, chordal *36.2 mm 43-52 level, PLAX LV internal dimension, ES, chordal 24.1 mm 23-38 level, PLAX Fractional shortening, chordal level, 33 % >29 PLAX LV posterior wall thickness, ED 11.1 mm IVS/LVPW ratio, ED 0.97 <1.3 Ventricular septum Septal thickness, ED 10.8 mm Aortic valve Leaflet separation 16 mm 15-26 Left atrium Anterior-posterior dimension 37 mm Anterior-posterior dimension index *2.26 cm/m^2 <2.2 Right ventricle RV internal dimension, ED, PLAX 21.8 mm 19-38 BASIC MEASUREMENTS ADULT NORMAL Aortic valve Leaflet separation 16 mm 15-26 Aorta Root diameter, ED 32 mm 20-37 Left atrium Anterior-posterior dimension, ES 37 mm 19-40 Anterior-posterior dimension index, ES *2.26 cm/m^2 <2.2 LA/aortic root ratio 1.16 DOPPLER MEASUREMENTS ADULT NORMAL Aortic valve Peak velocity, S 141 cm/s Valve area, Vmax 2.65 cm^2 Valve area index, Vmax 1.62 cm^2/m^2 Mitral valve Peak E-wave velocity 55.8 cm/s Peak A-wave velocity 109 cm/s Pressure half-time 57 ms Peak E/A ratio 0.5 Valve area, pressure half-time 3.86 cm^2 Valve area index, pressure half-time 2.35 cm^2/m^2 Tricuspid valve Peak gradient, D 29 mm Hg Maximal inflow velocity 269 cm/s Systemic veins Estimated CVP 10 mm Hg Pulmonic valve Peak velocity, S 73.3 cm/s LEGEND: Mean values are shown as u=mean value. Asterisk (*) keys values outside specified normal range. Prepared and signed by Cedric Hayes [id number]
--- NOTE | 2017-01-29 17:57 | RADRPT ---
EXAM DATE/TIME: 01/29/2017 17:38 [facility] COMPARISON: CT ABDOMEN & PELVIS W/O CONTRAST, December 03, 2014, 22:56. INDICATIONS : Lower abdominal pain with diarrhea for 1 month. ORAL CONTRAST: Prescribed oral contrast ingested. RADIATION DOSE: 7.74 CTDIvol (mGy) MEDICAL HISTORY : Gastroesophageal reflux disease. Hypertension. SURGICAL HISTORY : Hysterectomy. Cholecystectomy.Left hip hardik. ENCOUNTER: Initial ACUITY: 1 month PAIN SCALE: 6/10 LOCATION: Lower abdomen/pelvis TECHNIQUE: Volumetric scanning of the abdomen and pelvis was performed. Using automated exposure control and ad justment of the mA and/or kV according to patient size, radiation dose was kept as low as reasonably achievable to obtain optimal diagnostic quality images. FINDINGS: LOWER LUNGS: The visualized lower lungs are clear. LIVER: Homogeneous density without lesion. There is no dilation of the biliary tree. Post cholecystectomy c lips are noted. SPLEEN: Normal size without lesion. PANCREAS: Within normal limits. KIDNEYS: A 16 mm solid nodule is seen along the lateral cortex of the mid right kidney. Kidneys are otherwise stable and unremarkable appearance. There is no evidence of hydronephrosis. ADRENAL GLANDS: Within normal limits. VASCULAR: There is no aortic aneurysm. BOWEL/MESENTERY: Increased fluid accumulation with scattered air-fluid levels is noted throughout the small intestinal tract. Air-fluid levels are also seen in nondistended loops of colon. There are no extra intestinal fluid collections or romaine-intestinal inflammation. There is no evidence of free air. ABDOMINAL WALL: Within normal limits. RETROPERITONEUM: There is no lymphadenopathy. BLADDER: No wall thickening or mass. REPRODUCTIVE: Uterus has been removed. INGUINAL: There is no lymphadenopathy or hernia. MUSCULOSKELETAL: Within normal limits for patient age. CONCLUSION: 16 mm solid nodule right kidney. Nonspecific intestinal gas pattern with increased fluid accumulation and air-fluid levels. There is n o evidence of pathologic distention, abnormal fluid collections or free air. Status post cholecystectomy and hysterectomy. Jose Bishop MD on January 29, 2017 at 17:48 Board Certified Radiologist. This report was verified electronically.
[2017-01-30] VITALS (9 sets, daily range): BP systolic 112–189; BP diastolic 55–85; PULSE 74–106; RESP 18–20; TEMP 95.4–99.1; O2SAT 93–96
[2017-01-30] MEDS: VALSARTAN 160 MG TAB PO SCH (08:44)
[2017-01-30] MEDS: SODIUM CHLORIDE 0.9% FLUSH 5 ML FLUSH FLUSH SCH ×2 (08:44→20:53)
[2017-01-30] MEDS: PANTOPRAZOLE SOD 40 MG DELAYED RELEASE TAB PO SCH (08:44)
[2017-01-30] MEDS ORDERED: PROPOFOL 200 MG/20 ML AMP IV ONE (10:35)
--- NOTE | 2017-01-30 11:01 | GIPROC ---
[facility] [address] [facility]. [facility], [id number] EGD PROCEDURE REPORT EXAM DATE: 01/30/2017 PATIENT NAME: Quiana Flores MR #: [id number] BIRTHDATE: 1935 ATTENDING: Valeria Gomez MD ORDER #: [id number] LASTING FLOORWORKER: Nitesh Vegas and [employer] Ol[employer] STATUS: inpatient INDICATIONS: The patient is a 81 yr old female here for an EGD due to abdominal pain PROCEDURE PERFORMED: EGD w/ biopsy MEDICATIONS: None and Per Anesthesia. TOPICAL ANESTHETIC: CONSENT: The patient understands the risks and benefits of the procedure and understands that these risks include, but are not limited to: sedation, allergic reaction, infection, perforation and/or bleeding. Alternative means of evaluation and treatment include, among others: physical exam, x-rays, and/or surgical intervention. The patient elects to proceed with this endoscopic procedure. medical equipment was checked for proper function. Hand hygiene and appropriate measures for infection prevention was taken. After the risks, benefits and alternatives of the procedure were thoroughly explained, Informed consent was verified, confirmed and timeout was successfully executed by the treatment team. The patient was anesthetized with topical anesthesia and the [id number] (Pedi C) endoscope was introduced through the mouth and advanced to the second portion of the duodenum. Retroflexed views revealed a hiatal hernia The gastroscope was then slowly withdrawn and removed. STOMACH: There was erythematous severe gastritis with heme present in the gastric antrum. A biopsy was performed using cold forceps. Sample sent for histology. ADVERSE EVENTS: There were no complications. IMPRESSIONS: 1. There was erythematous gastritis in the gastric antrum; biopsy was performed 2. Retroflexed views revealed a hiatal hernia RECOMMENDATIONS: 1. Await biopsy results. Biopsy results will not be ready for 7-10 days. If you don't hear from us in two weeks, call our office for biopsy results. 2. Anti-reflux regimen 3. Continue PPI 4. Avoid NSAIDS PATIENT CONDITION: stable DISPOSITION: Inpatient REPEAT EXAM: Return 1 year EGD pending biopsy results Valeria Gomez MD eSigned: Valeria Gomez MD 01/30/2017 11:01 AM cc: PATIENT NAME: Quiana Flores MR#: [id number]
--- NOTE | 2017-01-30 11:04 | GIPROC ---
[facility] [address] [facility]. [facility], [address] COLONOSCOPY PROCEDURE REPORT EXAM DATE: 01/30/2017 PATIENT NAME: Quiana Flores MR #: [id number] BIRTHDATE: 1935 ENDOSCOPIST: Valeria Gomez MD ORDER #: [id number] OPTICAL MECHANIC: Nitesh Vegas and [employer] Ol[employer] STATUS: inpatient INDICATIONS: The patient is a 81 yr old female here for a colonoscopy due to abdominal pain and unexplained diarrhea PROCEDURE PERFORMED: Colonoscopy with biopsy MEDICATIONS: None and Per Anesthesia. PREP QUALITY: The Gore Bowel Prep Score was Right colon 2, Mid colon 3, and Left colon 3. Total = 8. PREP TYPE:Magnesium Citrate PREP TYPE:Type: ESTIMATED BLOOD LOSS: None CONSENT: The patient understands the risks and benefits of the procedure and understands that these risks include, but are not limited to: sedation, allergic reaction, infection, perforation and/or bleeding. Alternative means of evaluation and treatment include, among others: physical exam, x-rays, and/or surgical intervention. The patient elects to proceed with this endoscopic procedure. medical equipment was checked for proper function. Hand hygiene and appropriate measures for infection prevention was taken. After the risks, benefits and alternatives of the procedure were thoroughly explained, Informed consent was verified, confirmed and timeout was successfully executed by the treatment team. A digital exam revealed external hemorrhoids The Pentax [id number] endoscope was introduced through the anus and advanced to the cecum, which was identified by both the appendix and ileocecal valve. The instrument was then slowly withdrawn as the colon was fully examined. COLON FINDINGS: The colonic mucosa appeared normal throughout the entire examined colon. Multiple random biopsies of the area were performed. There was moderate diverticulosis noted in the sigmoid colon with associated tortuosity. Retroflexed views revealed internal hemorrhoids and Retroflexed views revealed small internal hemorrhoids The scope was then completely withdrawn from the patient and the procedure terminated. PROCEDURE WITHDRAWAL TIME:7minutes ADVERSE EVENTS: There were no complications. IMPRESSIONS: 1. The colonic mucosa appeared normal throughout the entire examined colon; multiple random biopsies of the area were performed 2. There was moderate diverticulosis noted in the sigmoid colon 3. Retroflexed views revealed internal hemorrhoids 4. Retroflexed views revealed small internal hemorrhoids 5. Revealed external hemorrhoids RECOMMENDATIONS: 1. Await biopsy results. Biopsy results will not be ready for 7-10 days. If you don't hear from us in two weeks, call our office for results. 2. Benefiber 2 tsp daily 3. Continue surveillance 4. Yearly hemoccult 5. Dicycolmine 10 mg pr tid ac 6. No seeds, nuts and popcorn in diet RECALL: Return 5 years Colonoscopy, pending biopsy results Valeria Gomez MD eSigned: Valeria Gomez MD 01/30/2017 11:04 AM cc: PATIENT NAME: Quiana Flores MR#: [id number]
--- NOTE | 2017-01-30 12:28 | HHI.PR ---
Subjective Remarks Says she feels weak and doesn't feel comfortable to go home. Feels lightheaded. No cp, sob. Did not eat yet. Returned form egd/colonoscopy. No fever or chills. Pain is controlled. Objective Vitals Vital Signs Date Time Temp Pulse Resp B/P Pulse Ox O2 Delivery O2 Flow Rate FiO2 01/30/17 11:49 96.0 83 18 161/63 93 01/30/17 11:15 89 16 143/67 95 01/30/17 11:07 89 16 144/67 95 01/30/17 10:57 97.7 91 16 136/80 95 01/30/17 10:10 95.4 86 18 179/83 96 01/30/17 08:02 95.4 86 18 179/83 96 01/30/17 00:47 98.1 88 18 155/60 96 01/29/17 20:51 97.9 74 18 159/76 98 01/29/17 16:47 78 01/29/17 16:05 95.4 64 17 172/65 97 I/O 01/29/17 01/29/17 01/29/17 01/30/17 01/30/17 01/30/17 07:00 15:00 23:00 07:00 15:00 23:00 Intake Total 800 ml 200 ml Balance 800 ml 200 ml Intake Oral 300 ml IV Total 500 ml Other 200 ml # Voids 6 Result Diagram: 01/28/17 1522 01/29/17 0709 Imaging Last Impressions Myocardial Perfusion Scan Nuc Med 01/29/17 0000 Signed Impressions: Service Date/Time: Sunday, January 29, 2017 12:52 - CONCLUSION: No areas of ischemia are seen. RISK CATEGORY: Low (<1%% Annual Mortality Rate) Franky Bourne MD Abdomen/Pelvis CT 01/29/17 0000 Signed Impressions: Service Date/Time: Sunday, January 29, 2017 17:38 - CONCLUSION: 16 mm solid nodule right kidney. Nonspecific intestinal gas pattern with increased fluid accumulation and air-fluid levels. There is no evidence of pathologic distention, abnormal fluid collections or free air. Status post cholecystectomy and hysterectomy. Jose Bishop MD Head CT 01/28/17 0000 Signed Impressions: Service Date/Time: Saturday, January 28, 2017 17:34 - CONCLUSION: Stable exam compared to prior study. No evidence of acute infarct, hemorrhage, mass or edema. Intact calvarium. Jose Bishop MD Chest X-Ray 01/28/17 0000 Signed Impressions: Service Date/Time: Saturday, January 28, 2017 15:46 - CONCLUSION: No acute disease. Franky Bourne MD Carotid Artery Ultrasound 01/28/17 0000 Signed Impressions: Service Date/Time: Saturday, January 28, 2017 23:51 - CONCLUSION: Mild calcified plaque at the carotid bulbs. No evidence of hemodynamically significant carotid stenosis. Willam Levin MD Objective Remarks GENERAL: Pleasant elderly female, well nourished, well developed, anxious SKIN: No rashes, ecchymoses or lesions. Cool and dry. HEAD: Atraumatic. Normocephalic. No temporal or scalp tenderness. EYES: Pupils equal round and reactive. Extraocular motions intact. No scleral icterus. No injection or drainage. ENT: Nose without bleeding, purulent drainage or septal hematoma. Throat without erythema, tonsillar hypertrophy or exudate. Uvula midline. Airway patent. NECK: Trachea midline. No JVD or lymphadenopathy. Supple, nontender, no meningeal signs. CARDIOVASCULAR: Regular rate and rhythm without murmurs, gallops, or rubs. RESPIRATORY: Clear to auscultation. Breath sounds equal bilaterally. No wheezes , rales, or rhonchi. GASTROINTESTINAL: Abdomen soft, non-tender, nondistended. No hepato-splenomegaly , or palpable masses. No guarding. MUSCULOSKELETAL: Extremities without clubbing, cyanosis, or edema. No joint tenderness, effusion, or edema noted. No calf tenderness. Negative Homans sign bilaterally. NEUROLOGICAL: Awake and alert. Cranial nerves II through XII intact. Motor and sensory grossly within normal limits. Five out of 5 muscle strength in all muscle groups. Normal speech. A/P Assessment and Plan Chest pain. H/o CAD with multiple stents follows with Dr Gurjit laguerre. CHF, has AICD Nausea EKG was reviewed and findings discussed with ED physician: Normal sinus rhythm, normal axis, left bundle branch block. Heart rate of 84 bpm. No change from bing Trop neg x3 . EKG no change Patient is not taking any anticoagulation as she has a recent h/o GIB and follows with GI Dr Calderon. She was supposed to have colonoscopy and EGD done today however she came to the ED instead because she had chest pain associated with nausea She also has diarrhea however she took the bowel prep at home and she is attributing the diarrhea 2/2 bowel prep.Consult her GI specialist Dr Simmons. S/P EGD /colonoscopy 01/30/17 Erythematous gastritis antrum, recommends PPIs. Diverticulosis sigmoid colon, internal and external hemorrhoids. Recommends dicyclomine 10 mg po TID. ne seeds, nuts or popcorn diet. Labs normal Carotid US normal 2D ECHO EF 65-70% Seen by Dr Moya plan for stress test Monitor on telemetry. neuro checks. Ativan as need for anxiety Consult her cardiology Dr Cagle . Seen by Dr Moya . Stress test low probability. Resume home meds, add antihypertensive IV prn NG SL for CP DVT ppx with SCD/TEDs Code Status full Discussed Condition With patient, nurse Consut PT DC [facility] morning , advance diet Fransisca Vitale MD Jan 30, 2017 12:27
[2017-01-30] MEDS ORDERED: DICY10CA12 PO (15:56)
--- NOTE | 2017-01-30 15:57 | HHI.DS ---
Discharge Summary Admission Date Jan 28, 2017 at 18:02 Discharge Date: Jan 31, 2017 Admitting Diagnosis chest pain, dizziness, headache, hypertension (1) Chest pain ICD Code: R07.9 Diagnosis: Principal (2) Nausea ICD Code: R11.0 Diagnosis: Principal (3) Abdominal pain ICD Code: R10.9 Diagnosis: Principal (4) Diverticulosis ICD Code: K57.90 Diagnosis: Principal (5) Internal hemorrhoids ICD Code: K64.8 Diagnosis: Principal (6) External hemorrhoids ICD Code: K64.4 Diagnosis: Principal (7) COPD (chronic obstructive pulmonary disease) ICD Code: J44.9 Diagnosis: Secondary (8) Coronary artery disease ICD Code: I25.10 Diagnosis: Secondary (9) Diarrhea ICD Code: R19.7 Diagnosis: Secondary (10) A-fib ICD Code: I48.91 Diagnosis: Secondary (11) HTN (hypertension) ICD Code: I10 Diagnosis: Secondary (12) Hypertension ICD Code: I10 Diagnosis: Secondary (13) Hyperlipidemia ICD Code: E78.5 Diagnosis: Secondary (14) GERD (gastroesophageal reflux disease) ICD Code: K21.9 Diagnosis: Secondary (15) H/O heart artery stent ICD Code: Z95.5 Procedures EGD/Colonoscopy Brief History - From Admission 81-year-old female of came to the emergency room with history of dizziness and chest discomfort. Also her blood pressure has been running high. Patient attributes all this to the GoLYTELY that she has started taking for bowel prep for her colonoscopy. Her systolic blood pressure on admission was on 190s. She says she has associated headache as well. No change in vision or motor deficit. [place] dizzy however did not fall. The chest pain she said she couldn't describe but just feels like it is there and pointed to the left side of her chest. Patient is elderly and seemed anxious. Her headache is bitemporal. None of the pains are radiating. 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 Patient also reports nausea but no vomiting. Denies fever or chills. Had diarrhea 2/2 bowel prep. CBC/BMP: 01/28/17 1522 01/29/17 0709 Significant Findings Laboratory Tests Test 01/28/17 01/28/17 01/29/17 01/29/17 15:22 21:36 00:29 07:09 Neutrophils % (Manual) 78 % (16-70) Estimat Glomerular Filtration 53 ML/MIN (>89) 56 ML/MIN (>89) Rate Troponin I LESS THAN 0.02 LESS THAN 0.02 LESS THAN 0.02 NG/ML NG/ML NG/ML (0.02-0.05) (0.02-0.05) (0.02-0.05) Imaging Last Impressions Myocardial Perfusion Scan Nuc Med 01/29/17 0000 Signed Impressions: Service Date/Time: Sunday, January 29, 2017 12:52 - CONCLUSION: No areas of ischemia are seen. RISK CATEGORY: Low (<1%% Annual Mortality Rate) Franky Bourne MD Abdomen/Pelvis CT 01/29/17 0000 Signed Impressions: Service Date/Time: Sunday, January 29, 2017 17:38 - CONCLUSION: 16 mm solid nodule right kidney. Nonspecific intestinal gas pattern with increased fluid accumulation and air-fluid levels. There is no evidence of pathologic distention, abnormal fluid collections or free air. Status post cholecystectomy and hysterectomy. Jose Bishop MD Head CT 01/28/17 0000 Signed Impressions: Service Date/Time: Saturday, January 28, 2017 17:34 - CONCLUSION: Stable exam compared to prior study. No evidence of acute infarct, hemorrhage, mass or edema. Intact calvarium. Jose Bishop MD Chest X-Ray 01/28/17 0000 Signed Impressions: Service Date/Time: Saturday, January 28, 2017 15:46 - CONCLUSION: No acute disease. Franky Bourne MD Carotid Artery Ultrasound 01/28/17 0000 Signed Impressions: Service Date/Time: Saturday, January 28, 2017 23:51 - CONCLUSION: Mild calcified plaque at the carotid bulbs. No evidence of hemodynamically significant carotid stenosis. Willam Levin MD PE at Discharge GENERAL: Pleasant elderly female, well nourished, well developed, anxious SKIN: No rashes, ecchymoses or lesions. Cool and dry. HEAD: Atraumatic. Normocephalic. No temporal or scalp tenderness. EYES: Pupils equal round and reactive. Extraocular motions intact. No scleral icterus. No injection or drainage. ENT: Nose without bleeding, purulent drainage or septal hematoma. Throat without erythema, tonsillar hypertrophy or exudate. Uvula midline. Airway patent. NECK: Trachea midline. No JVD or lymphadenopathy. Supple, nontender, no meningeal signs. CARDIOVASCULAR: Regular rate and rhythm without murmurs, gallops, or rubs. RESPIRATORY: Clear to auscultation. Breath sounds equal bilaterally. No wheezes , rales, or rhonchi. GASTROINTESTINAL: Abdomen soft, non-tender, nondistended. No hepato-splenomegaly , or palpable masses. No guarding. MUSCULOSKELETAL: Extremities without clubbing, cyanosis, or edema. No joint tenderness, effusion, or edema noted. No calf tenderness. Negative Homans sign bilaterally. NEUROLOGICAL: Awake and alert. Cranial nerves II through XII intact. Motor and sensory grossly within normal limits. Five out of 5 muscle strength in all muscle groups. Normal speech. Pt update on day of discharge Was able to eat last night. Says she was nauseated but able to keep down. Denies having abd pain. She has some abd pain last night when she ate. Denies fever or chills. No n/v/d/c. Denies chest pain, sob. diaphoresis, lightheadedness. Hospital Course Chest pain. H/o CAD with multiple stents follows with Dr Gurjit laguerre. CHF with preserved EF, has AICD. 2D ECHO 01/29/17 with EF 65-70% Nausea EKG was reviewed and findings discussed with ED physician: Normal sinus rhythm, normal axis, left bundle branch block. Heart rate of 84 bpm. No change from bing Trop neg x3 . EKG no change Patient is not taking any anticoagulation as she has a recent h/o GIB and follows with GI Dr Calderon. She was supposed to have colonoscopy and EGD done today however she came to the ED instead because she had chest pain associated with nausea She also has diarrhea however she took the bowel prep at home and she is attributing the diarrhea 2/2 bowel prep.Consult her GI specialist Dr Simmons. S/P EGD /colonoscopy 01/30/17 Erythematous gastritis antrum, recommends PPIs. Diverticulosis sigmoid colon, internal and external hemorrhoids. Recommends dicyclomine 10 mg po TID. ne seeds, nuts or popcorn diet. Labs normal Carotid US normal 2D ECHO 01/29/17 with EF 65-70% Seen by Dr Moya plan for stress test Monitor on telemetry. neuro checks. Ativan as need for anxiety Consult her cardiology Dr Cagle . Seen by Dr Moya . Stress test low probability. Resume home meds, add antihypertensive IV prn NG SL for CP DVT ppx with SCD/TEDs Code Status full Discussed Condition With patient, nurse Patient improved, tolerates food, cleared by consultants for DC. To follow up as OP with PCP and consultants. PT recommends PT at home.Discharge home with home health in fairly stable condition. Pt Condition on Discharge: Stable Discharge Disposition: Disch w/ Home Health Serv Discharge Time: > 30 minutes Discharge Instructions DIET: Follow Instructions for: Heart Healthy Diet Activities you can perform: Regular-No Restrictions Follow up Referrals: Cardiology - 2 Weeks Gastroenterology - 2 Weeks PCP Follow-up - 3-5 Days New Medications: Dicyclomine (Dicyclomine) 10 Mg Cap 10 MG PO TID Bowel Management #30 Ref 0 CAP Continued Medications: Clopidogrel (Plavix) 75 Mg Tab 75 MG PO DAILY Blood Clot Prevention #30 Ref 0 TAB Ergocalciferol (Ergocalciferol) 50,000 Unit Cap 39282 UNITS PO Q7D Nutritional Supplement #30 Ref 0 CAP Meclizine (Meclizine) 25 Mg Chew 25 MG CHEW DIRECTED PRN VERTIGO Ref 0 TAB Nitroglycerin SL (Nitrostat SL) 0.4 Mg Subl 0.4 MG SL DIRECTED 1 tablet under the tongue as needed for chest pain. Repeat every 5 minutes for a total of 3 DOSES or call 911 if NO relief. PRN CHEST PAIN #100 Ref 0 TAB.SL Promethazine (Promethazine) 12.5 Mg Tab 12.5 MG PO Q6H PRN NAUSEA OR VOMITING Ref 0 TAB Valsartan (Diovan) 320 Mg Tab 320 MG PO DAILY #30 Ref 0 TAB Fransisca Vitale MD Jan 30, 2017 15:57
--- NOTE | 2017-01-30 15:57 | HHI.FF ---
Face to Face Verification Diagnosis: (1) Ileus (2) Colitis (3) A-fib (4) Pseudoaneurysm following procedure (5) COPD (chronic obstructive pulmonary disease) (6) Coronary artery disease (7) HTN (hypertension) (8) Diarrhea (9) Abdominal pain (10) Nausea (11) Chest pain (12) Hypertension (13) CAD (coronary artery disease) (14) Hyperlipidemia (15) GERD (gastroesophageal reflux disease) Physical Therapy Order: Evaluate and Treat Home Health Nursing Order: Medical education Signs/symptoms of disease process Medication education-adverse effect Nursing assessment with vital signs I have seen patient Quiana Flores on 01/30/17. My clinical findings support the need for the requested home health care services because: Ltd mobility - disease progression Patient has SOB I certify that my clinical findings support that this patient is homebound because: Post-op weakness Fransisca Vitale MD Jan 30, 2017 15:57
[2017-01-31 02:18] VITALS: PULSE 68
[2017-01-31 03:53] VITALS: BP 117/76; PULSE 76; RESP 20; TEMP 98.3; O2SAT 95
[2017-01-31 05:41] VITALS: BP 132/81; PULSE 70; RESP 20; TEMP 97.9; O2SAT 97
[2017-01-31 07:23] VITALS: PULSE 79
[2017-01-31 07:24] VITALS: BP 118/55; PULSE 74; RESP 16; TEMP 98.7; O2SAT 94
[2017-01-31] MEDS ORDERED: LACTCHW3 CHEW (08:21)
[2017-01-31] MEDS: PANTOPRAZOLE SOD 40 MG DELAYED RELEASE TAB PO SCH (10:55)
[2017-01-31] MEDS: VALSARTAN 160 MG TAB PO SCH (10:55)
[2017-01-31] MEDS: LACTOBACILLUS ACIDOPHILUS TAB PO SCH ×2 (10:56→13:19)
[2017-01-31] MEDS: DICYCLOMINE HCL 20 MG TAB PO SCH ×2 (10:56→13:00)
[2017-01-31] MEDS: SODIUM CHLORIDE 0.9% FLUSH 5 ML FLUSH FLUSH SCH (10:56)
[2017-01-31 11:42] VITALS: BP 119/57; PULSE 67; RESP 18; TEMP 98; O2SAT 97
== END 2017-01-31 14:10 | disposition home or self-care (01) ==
LOC: NEPA 14:25 → NEDA 18:02 → NEPGCP 20:31
PROVIDERS: ADMIT Hospitalist; ATTEND Hospitalist
DX: K29.50 Unspecified chronic gastritis without bleeding (principal); K57.30 Diverticulosis of large intestine without perforation or abscess without bleeding; K64.4 Residual hemorrhoidal skin tags; K64.8 Other hemorrhoids; K44.9 Diaphragmatic hernia without obstruction or gangrene; R07.9 Chest pain, unspecified; I11.0 Hypertensive heart disease with heart failure; I25.2 Old myocardial infarction; J44.9 Chronic obstructive pulmonary disease, unspecified; I48.91 Unspecified atrial fibrillation; E78.5 Hyperlipidemia, unspecified; R42 Dizziness and giddiness; I25.10 Atherosclerotic heart disease of native coronary artery without angina pectoris; I44.7 Left bundle-branch block, unspecified; K21.9 Gastro-esophageal reflux disease without esophagitis; Z95.5 Presence of coronary angioplasty implant and graft; Z95.810 Presence of automatic (implantable) cardiac defibrillator; Z85.41 Personal history of malignant neoplasm of cervix uteri; Z87.2 Personal history of diseases of the skin and subcutaneous tissue; Z88.5 Allergy status to narcotic agent; Z88.0 Allergy status to penicillin; Z88.2 Allergy status to sulfonamides; Z88.8 Allergy status to other drugs, medicaments and biological substances; Z88.1 Allergy status to other antibiotic agents; Z91.041 Radiographic dye allergy status; Z79.02 Long term (current) use of antithrombotics/antiplatelets
CPT/HCPCS: 00740; 43239; 45380; 70450; 71020; 74176; 78452; 80053; 82550; 82552; 83690; 83735; 84484; 85007; 85027; 85610; 85730; 87328; 87329; 88305; 88312; 93005; 93017; 93306; 93880; 97161; 99285; A9502; G0378; G8987; G8988; G8989; J1650; J2785; J7040; Q9963

== ENCOUNTER → 2017-06-03 | Outpatient (CLI) | payer MEDICARE, OTHER ==
[~2017-06-03] MED LIST changes: -ASPI325T PO; -ATOR10TA PO; -CLOP75 PO; +DICY10CA12 PO; +ERGO1CAP30 PO; +LACTCHW3 CHEW; -MECL25; +MECL25CH CHEW; -NITR.4 SL; +NITR0.4S SL; +PLAV75TA29 PO; +PROM12.54 PO; -PROM25TA5 PO; -VITA400T14 PO
[2017-06-03 12:54] LABS: HEMATOCRIT 40.8 % (35.0-46.0); MEAN CELL VOLUME 85.1 FL (80.0-100.0); MEAN CORPUSCULAR HEMOGLOBIN 28.4 PG (27.0-34.0); MEAN CORPUSCULAR HGB CONC 33.3 % (32.0-36.0); PLATELET COUNT 220 TH/MM3 (150-450); RED BLOOD COUNT 4.79 MIL/MM3 (4.00-5.30); RED CELL DISTRIBUTION WIDTH 13.3 % (11.6-17.2); REVIEW FLAG FINAL; WHITE BLOOD COUNT 6.8 TH/MM3 (4.0-11.0)
[2017-06-03 13:23] LABS: ANION GAP 6 MEQ/L (5-15); AST (GOT) 10 U/L (15-37); BICARBONATE 30.6 MEQ/L (21.0-32.0); BLOOD UREA NITROGEN 16 MG/DL (7-18); CHLORIDE 105 MEQ/L (98-107); GLOMERULAR FILTRATION RATE 73 ML/MIN (>89); GLUCOSE,FASTING 76 MG/DL (74-99); POTASSIUM 4.2 MEQ/L (3.5-5.1); SODIUM (NA) 142 MEQ/L (136-145)
[2017-06-03 13:35] LABS: ALKALINE PHOSPHATASE 58 U/L (45-117); ALT (GPT) 14 U/L (10-53); HDL CHOLESTEROL 53.2 MG/DL (40.0-60.0); LDL CHOLESTEROL 133 MG/DL (0-99); LDL CHOLESTEROL DIRECT 132 MG/DL (0-99); TOTAL BILIRUBIN ADULT 0.5 MG/DL (0.2-1.0)
== END ==
LOC: PLAB 10:42
PROVIDERS: ATTEND Internal Medicine
DX: I25.10 Atherosclerotic heart disease of native coronary artery without angina pectoris (principal); I10 Essential (primary) hypertension; E78.5 Hyperlipidemia, unspecified
CPT/HCPCS: 36415; 80053; 80061; 83721; 85027

== ENCOUNTER → 2017-10-01 | Outpatient (CLI) | payer MEDICARE, OTHER ==
[~2017-10-01] MED LIST changes: -ERGO1CAP30 PO; +VITA500012 PO
[2017-10-01 16:16] LABS: HEMATOCRIT 40.2 % (35.0-46.0); MEAN CELL VOLUME 84.7 FL (80.0-100.0); MEAN CORPUSCULAR HEMOGLOBIN 28.3 PG (27.0-34.0); MEAN CORPUSCULAR HGB CONC 33.4 % (32.0-36.0); PLATELET COUNT 232 TH/MM3 (150-450); RED BLOOD COUNT 4.75 MIL/MM3 (4.00-5.30); RED CELL DISTRIBUTION WIDTH 13.4 % (11.6-17.2); REVIEW FLAG FINAL; WHITE BLOOD COUNT 7.2 TH/MM3 (4.0-11.0)
[2017-10-01 16:38] LABS: ALT (GPT) 20 U/L (10-53); ANION GAP 6 MEQ/L (5-15); AST (GOT) 13 U/L (15-37); BICARBONATE 28.9 MEQ/L (21.0-32.0); BLOOD UREA NITROGEN 12 MG/DL (7-18); CHLORIDE 107 MEQ/L (98-107); GLOMERULAR FILTRATION RATE 72 ML/MIN (>89); GLUCOSE,FASTING 78 MG/DL (74-99); POTASSIUM 4.3 MEQ/L (3.5-5.1); SODIUM (NA) 142 MEQ/L (136-145)
[2017-10-01 16:40] LABS: ALKALINE PHOSPHATASE 68 U/L (45-117); HDL CHOLESTEROL 68.2 MG/DL (40.0-60.0); LDL CHOLESTEROL 121 MG/DL (0-99); LDL CHOLESTEROL DIRECT 146 MG/DL (0-99); TOTAL BILIRUBIN ADULT 0.4 MG/DL (0.2-1.0)
== END ==
LOC: PLAB 13:41
PROVIDERS: ATTEND Internal Medicine
DX: I25.10 Atherosclerotic heart disease of native coronary artery without angina pectoris (principal); E78.5 Hyperlipidemia, unspecified
CPT/HCPCS: 36415; 80053; 80061; 83721; 85027

== ENCOUNTER 2018-01-17 11:57 | Emergency (ER) | payer MEDICARE, OTHER ==
[~2018-01-17] VITALS: Ht 157.5 cm; Wt 71.5 kg
[2018-01-17 12:07] VITALS: BP_SYST 178; BP_SYST 209; BP_DIAS 86; BP_DIAS 92; PULSE 96; RESP 16; TEMP 97.8; O2SAT 98
[2018-01-17 13:08] LABS: AUTOMATED NEUTROPHIL # 5.6 TH/MM3 (1.8-7.7); BASOPHIL # 0.1 TH/MM3 (0-0.2); BASOPHIL % 0.8 % (0.0-2.0); EOSINOPHIL % 0.1 % (0.0-4.0); HEMATOCRIT 43.5 % (35.0-46.0); HEMOGLOBIN 14.7 GM/DL (11.6-15.3); LYMPH % 20.7 % (9.0-44.0); LYMPHOCYTE # 1.6 TH/MM3 (1.0-4.8); MEAN CELL VOLUME 84.9 FL (80.0-100.0); MEAN CORPUSCULAR HEMOGLOBIN 28.7 PG (27.0-34.0); MEAN CORPUSCULAR HGB CONC 33.8 % (32.0-36.0); MEAN PLATELET VOLUME 7.7 FL (7.0-11.0); MONO % 4.2 % (0.0-8.0); MONOCYTE # 0.3 TH/MM3 (0-0.9); NEUT % 74.2 % (16.0-70.0); PLATELET COUNT 261 TH/MM3 (150-450); RED BLOOD COUNT 5.13 MIL/MM3 (4.00-5.30); RED CELL DISTRIBUTION WIDTH 13.6 % (11.6-17.2); WHITE BLOOD COUNT 7.5 TH/MM3 (4.0-11.0)
[2018-01-17 13:31] LABS: BICARBONATE 27.8 MEQ/L (21.0-32.0); BLOOD UREA NITROGEN 9 MG/DL (7-18); CALCIUM 9.4 MG/DL (8.5-10.1); CHLORIDE 103 MEQ/L (98-107); CREATININE 0.88 MG/DL (0.50-1.00); GLOMERULAR FILTRATION RATE 61 ML/MIN (>89); GLUCOSE,RANDOM 87 MG/DL (74-106); SODIUM (NA) 140 MEQ/L (136-145)
[2018-01-17 13:35] LABS: TROPONIN I LESS THAN 0.02 NG/ML (0.02-0.05)
--- NOTE | 2018-01-17 14:19 | PD ---
HPI Chief Complaint: Hypertension Time Seen by Provider: 14:19 Travel History International Travel<30 days: No Contact w/Intl Traveler<30days: No Traveled to known affect area: No History of Present Illness HPI 82-year-old female came to the emergency room sent from her primary care's office for blood pressure in 200s. Patient says that she has had a headache and lightheadedness for past couple days. Patient has also been dealing with diarrhea especially after she eats or drinks anything. She supposed to see her GI specialist Dr. Yoo. However this time the primary care center to the emergency room because of the high blood pressure. Patient is awake and answering questions appropriately. She had blood test done where she was in the waiting room. All the test results are back at a time she came to the emergency room. She does not appear to be in any significant distress. Patient denies of any chest pain or shortness of breath. Patient does have history of high blood pressure and is on medications. She says she's been taking her medications like she supposed to. COUNT INCLUDES THE [facility] Past Medical History Narrative Medical List of her past medical, surgical, social and family history is reviewed from the nursing note. 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) Coronary Artery Disease: Yes Diabetes: No Diminished Hearing: No Endocrine: No Gastrointestinal Disorders: Yes GERD: Yes Genitourinary: No Hiatal Hernia: No Hypertension: Yes Immune Disorder: No Implanted Vascular Access Dvce: Yes Musculoskeletal: No Neurologic: No Psychiatric: No Reproductive: No Respiratory: Yes Immunizations Current: No Myocardial Infarction: No Radiation Therapy: No Sleep Apnea: No Thyroid Disease: No Ulcer: Yes Menopausal: Yes Past Surgical History AICD: Yes Body Medical Devices: RODS IN BOTH LOWER EXTREMITIES Cholecystectomy: Yes Coronary Artery Bypass Graft: No Coronary Stent: Yes (MULTIPLE PROCEDURES) Genitourinary Surgery: Yes (BLADDER REPAIR) Hysterectomy: Yes Pacemaker: Yes Tonsillectomy: Yes Other Surgery: Yes (bladder repair, femoral hardik placement, hysterectomy, tonsillectomy) Social History Alcohol Use: No Tobacco Use: No Substance Use: No Allergies-Medications (Allergen,Severity, Reaction): Coded Allergies: amoxicillin (Unverified Allergy, Severe, ANAPHYLAXIS, 07/02/17) ampicillin (Unverified Allergy, Severe, SOB, HIVES, 07/02/17) cephalexin (Unverified Allergy, Severe, SOB, HIVES, 07/02/17) diphenhydramine (Unverified Allergy, Severe, SOB, HIVES, 07/02/17) erythromycin base (Unverified Allergy, Severe, SOB, HIVES, 07/02/17) nitrofurantoin (Unverified Allergy, Severe, SOB, HIVES, 07/02/17) penicillin G (Unverified Allergy, Severe, ANAPHYLAXIS, 07/02/17) phenazopyridine (Unverified Allergy, Severe, SOB, HIVES, 07/02/17) sulfamethoxazole (Unverified Allergy, Severe, SOB, HIVES, 07/02/17) tetracycline (Unverified Allergy, Severe, SOB, HIVES, 07/02/17) trimethoprim (Unverified Allergy, Severe, SOB, HIVES, 07/02/17) codeine (Unverified Allergy, Intermediate, HIVES, 07/02/17) adenosine (Unverified Allergy, Unknown, 07/02/17) PT DOESN'T RECALL diatrizoate meglumine (Unverified Allergy, Unknown, 07/02/17) PT DOESN'T RECALL gadobenic acid (Unverified Allergy, Unknown, 07/02/17) PT DOESN'T RECALL gadodiamide (Unverified Allergy, Unknown, 07/02/17) PT DOESN'T RECALL gadoteridol (Unverified Allergy, Unknown, 07/02/17) PT DOESN'T RECALL iodixanol (Unverified Allergy, Unknown, 07/02/17) PT DOESN'T RECALL iohexol (Unverified Allergy, Unknown, 07/02/17) PT DOESN'T RECALL moxifloxacin (Unverified Allergy, Unknown, 07/02/17) PT DOESN'T RECALL Comments List of her extensive allergies reviewed from the nursing note. Reported Meds & Prescriptions Reported Meds & Active Scripts Active Reported Amitiza (Lubiprostone) 8 Mcg Cap 24 Mcg PO BID Nexium (Esomeprazole DR) 40 Mg Capdr 40 Mg PO DAILY Aspirin 81 Mg Chew 81 Mg CHEW DAILY Diovan (Valsartan) 320 Mg Tab 320 Mg PO DAILY Plavix (Clopidogrel Bisulfate) 75 Mg Tab 75 Mg PO DAILY Narrative Medication This of her home medications reviewed from the nursing note. Review of Systems Except as stated in HPI: all other systems reviewed are Neg Neurologic: Positive: Headache Physical Exam Narrative GENERAL: Awake, alert, elderly, anxious SKIN: Focused skin assessment warm/dry. HEAD: Atraumatic. Normocephalic. EYES: Pupils equal and round. No scleral icterus. No injection or drainage. ENT: No nasal bleeding or discharge. Mucous membranes pink and moist. NECK: Trachea midline. No JVD. CARDIOVASCULAR: Regular rate and rhythm. No murmur appreciated. RESPIRATORY: No accessory muscle use. Clear to auscultation. Breath sounds equal bilaterally. GASTROINTESTINAL: Abdomen soft, non-tender, nondistended. Hepatic and splenic margins not palpable. MUSCULOSKELETAL: No obvious deformities. No clubbing. No cyanosis. No edema. NEUROLOGICAL: Awake and alert. No obvious cranial nerve deficits. Motor grossly within normal limits. Normal speech. PSYCHIATRIC: Appropriate mood and affect; insight and judgment normal. Data Data Last Documented VS Vital Signs Date Time Temp Pulse Resp B/P (MAP) Pulse Ox O2 Delivery O2 Flow Rate FiO2 01/17/18 16:49 01/17/18 16:17 75 01/17/18 12:07 97.8 16 98 Orders Orders Electrocardiogram (01/17/18 12:09) Complete Blood Count With Diff (01/17/18 12:09) Basic Metabolic Panel (Bmp) (01/17/18 12:09) Ckmb (Isoenzyme) Profile (01/17/18 12:09) Troponin I (01/17/18 12:09) Clonidine (Catapres) (01/17/18 14:30) Ct Brain W/O Iv Contrast(Rout) (01/17/18 ) Orthostatic Vital Signs (01/17/18 14:28) Ed Discharge Order (01/17/18 15:56) Labs Laboratory Tests Test 01/17/18 12:26 White Blood Count 7.5 TH/MM3 Red Blood Count 5.13 MIL/MM3 Hemoglobin 14.7 GM/DL Hematocrit 43.5 % Mean Corpuscular Volume 84.9 FL Mean Corpuscular Hemoglobin 28.7 PG Mean Corpuscular Hemoglobin Concent 33.8 % Red Cell Distribution Width 13.6 % Platelet Count 261 TH/MM3 Mean Platelet Volume 7.7 FL Neutrophils (%) (Auto) 74.2 % Lymphocytes (%) (Auto) 20.7 % Monocytes (%) (Auto) 4.2 % Eosinophils (%) (Auto) 0.1 % Basophils (%) (Auto) 0.8 % Neutrophils # (Auto) 5.6 TH/MM3 Lymphocytes # (Auto) 1.6 TH/MM3 Monocytes # (Auto) 0.3 TH/MM3 Eosinophils # (Auto) 0.0 TH/MM3 Basophils # (Auto) 0.1 TH/MM3 CBC Comment DIFF FINAL Differential Comment Blood Urea Nitrogen 9 MG/DL Creatinine 0.88 MG/DL Random Glucose 87 MG/DL Calcium Level 9.4 MG/DL Sodium Level 140 MEQ/L Potassium Level 3.8 MEQ/L Chloride Level 103 MEQ/L Carbon Dioxide Level 27.8 MEQ/L Anion Gap 9 MEQ/L Estimat Glomerular Filtration Rate 61 ML/MIN Total Creatine Kinase 61 U/L Troponin I LESS THAN 0.02 NG/ML MDM Medical Decision Making Medical Screen Exam Complete: Yes Emergency Medical Condition: Yes Medical Record Reviewed: Yes Interpretation(s) Twelve-lead EKG was reviewed by me. Normal sinus rhythm, left axis deviation, left bundle branch block. Heart rate of 84 bpm. Differential Diagnosis Essential hypertension, intracranial bleed Narrative Course 3:54 PM blood test results are all within normal limit. There was a head CT ordered for the headache the patient has been complaining which was read as negative. Patient was given 0.2 mg of clonidine and the latest blood pressure is 154 systolic. I'll discharge her home. She needs to keep a diary of her blood pressure and follow up with her primary care on Saturday. Procedures EKG Prior to Arrival: No Diagnosis Primary Impression: Hypertension Qualified Codes: I10 - Essential (primary) hypertension Referrals: Primary Care Physician Additional Instructions: Please keep a diary of your blood pressure. Check your blood pressure in the morning and evening. Take your medications like is supposed to. Follow-up with your primary care on Saturday with the blood pressure readings. Med/Other Pt SpecificInfo: No Change to Meds Disposition: DISCHARGE HOME Condition: Stable Jorge Prather MD Jan 17, 2018 14:19
[2018-01-17] MEDS ORDERED: cloNIDine HCL 0.2 MG TAB PO ONE (14:30)
[2018-01-17 14:55] VITALS: BP_SYST 189; BP_SYST 191; BP_DIAS 75; BP_DIAS 79; BP_DIAS 88
--- NOTE | 2018-01-17 15:04 | RADRPT ---
EXAM DATE/TIME: 01/17/2018 14:48 [facility] COMPARISON: CT BRAIN W/O CONTRAST, January 28, 2017, 17:34. INDICATIONS : Headaches with increase in blood pressure. RADIATION DOSE: 34.52 CTDIvol (mGy) MEDICAL HISTORY : Cardiovascular disease. Hypertension. Congestive heart failure. SURGICAL HISTORY : Pacemaker. Cholecystectomy.Hysterectomy.Badder repair, ENCOUNTER: Initial ACUITY: 1 day PAIN SCALE: 3/10 LOCATION: Bilateral cranial TECHNIQUE: Multiple contiguous axial images were obtained of the head. Using automated exposure control and adj ustment of the mA and/or kV according to patient size, radiation dose was kept as low as reasonably a chievable to obtain optimal diagnostic quality images. DICOM format image data is available electro nically for review and comparison. FINDINGS: CEREBRUM: The ventricles are normal for age. No evidence of midline shift, mass lesion, hemorrhage or acute in farction. No extra-axial fluid collections are seen. POSTERIOR FOSSA: The cerebellum and brainstem are intact. The 4th ventricle is midline. The cerebellopontine angle i s unremarkable. EXTRACRANIAL: The visualized portion of the orbits is intact. SKULL: The calvaria is intact. No evidence of skull fracture. CONCLUSION: Normal examination. Colin Vee MD on January 17, 2018 at 15:03 Board Certified Radiologist. This report was verified electronically.
[2018-01-17] MEDS ORDERED: NEXI40CA PO (15:24)
[2018-01-17] MEDS ORDERED: ASPI-516 CHEW (15:24)
[2018-01-17] MEDS ORDERED: AMIT8CAP6 PO (15:24)
[2018-01-17 15:54] VITALS: BP 156/71; PULSE 67
[2018-01-17 16:17] VITALS: BP 132/59; PULSE 75
--- NOTE | 2018-01-18 10:09 | EKG ---
Date Performed: 01/17/2018 Time Performed: 12:19:19 PTAGE: 82 years EKG: Sinus rhythm INTRAVENTRICULAR CONDUCTION DELAY ANTEROSEPTAL MYOCARDIAL INFARCTION ABNORMAL ECG PREVIOUS TRACING : 01/28/2017 21.39 DOCTOR: Cedric Hayes Interpretating Date/Time 01/18/2018 10:07:37
== END 2018-01-17 16:50 | disposition home or self-care (01) ==
LOC: NEPC 11:57
DX: I10 Essential (primary) hypertension (principal); R94.31 Abnormal electrocardiogram [ECG] [EKG]; I25.10 Atherosclerotic heart disease of native coronary artery without angina pectoris; Z85.41 Personal history of malignant neoplasm of cervix uteri; Z85.828 Personal history of other malignant neoplasm of skin; Z88.1 Allergy status to other antibiotic agents; Z88.5 Allergy status to narcotic agent; Z88.0 Allergy status to penicillin; Z88.8 Allergy status to other drugs, medicaments and biological substances
CPT/HCPCS: 70450; 80048; 82550; 84484; 85025; 93005; 99285

== ENCOUNTER → 2018-02-13 | Outpatient (CLI) | payer MEDICARE, OTHER ==
[~2018-02-13] MED LIST changes: +AMIT8CAP6 PO; +ASPI-516 CHEW; -DICY10CA12 PO; -LACTCHW3 CHEW; -MECL25CH CHEW; +NEXI40CA PO; -NITR0.4S SL; -PROM12.54 PO; -VITA500012 PO
[2018-02-13 14:36] LABS: CREATININE 0.89 MG/DL (0.50-1.00)
== END ==
LOC: PLAB 09:52
PROVIDERS: ATTEND Physician Assistant Medical
DX: R10.9 Unspecified abdominal pain (principal)
CPT/HCPCS: 36415; 82565; 84520

== ENCOUNTER → 2018-03-18 | Outpatient (CLI) | payer MEDICARE, OTHER ==
[2018-03-18 14:15] LABS: HEMATOCRIT 40.2 % (35.0-46.0); HEMOGLOBIN 13.5 GM/DL (11.6-15.3); MEAN CORPUSCULAR HEMOGLOBIN 28.6 PG (27.0-34.0); MEAN CORPUSCULAR HGB CONC 33.6 % (32.0-36.0); MEAN PLATELET VOLUME 8.7 FL (7.0-11.0); PLATELET COUNT 238 TH/MM3 (150-450); RED BLOOD COUNT 4.72 MIL/MM3 (4.00-5.30); RED CELL DISTRIBUTION WIDTH 13.3 % (11.6-17.2); WHITE BLOOD COUNT 6.2 TH/MM3 (4.0-11.0)
[2018-03-18 14:16] LABS: ALBUMIN 3.9 GM/DL (3.4-5.0); AST (GOT) 13 U/L (15-37); BICARBONATE 28.9 MEQ/L (21.0-32.0); BLOOD UREA NITROGEN 10 MG/DL (7-18); CALCIUM 8.9 MG/DL (8.5-10.1); CHLORIDE 108 MEQ/L (98-107); CREATININE 0.92 MG/DL (0.50-1.00); GLOMERULAR FILTRATION RATE 58 ML/MIN (>89); GLUCOSE,FASTING 80 MG/DL (74-99); SODIUM (NA) 144 MEQ/L (136-145)
[2018-03-18 14:17] LABS: CHOLESTEROL 198 MG/DL (120-200)
[2018-03-18 14:24] LABS: BACTERIA, URINE RARE /hpf; BILIRUBIN, URINE NEG (NEG); BLOOD, URINE NEG (NEG); GLUCOSE,URINE NEG (NEG); HYALINE CAST, URINE 2 /lpf (RARE); KETONE, URINE NEG (NEG); MUCUS URINE MOD /lpf (OCC); NITRITE,URINE NEG (NEG); SQUAMOUS EPITHELIAL CELL URINE 12 /hpf (0-5); URINE COLOR YELLOW (YELLW/STRAW); URINE LEUKOCYTE ESTERASE MOD (NEG)
[2018-03-18 14:28] LABS: ALKALINE PHOSPHATASE 60 U/L (45-117); ALT (GPT) 17 U/L (10-53); CHOLESTEROL/ HDL RATIO 3.63 RATIO; FREE T4 1.04 NG/DL (0.76-1.46); HDL CHOLESTEROL 54.4 MG/DL (40.0-60.0); LDL CHOLESTEROL 122 MG/DL (0-99); LDL CHOLESTEROL DIRECT 137 MG/DL (0-99); TOTAL BILIRUBIN ADULT 0.6 MG/DL (0.2-1.0); TOTAL PROTEIN 7.2 GM/DL (6.4-8.2); TRIGLYCERIDES 109 MG/DL (42-150)
== END ==
LOC: PLAB 11:34
PROVIDERS: ATTEND Internal Medicine
DX: I10 Essential (primary) hypertension (principal); E78.5 Hyperlipidemia, unspecified
CPT/HCPCS: 36415; 80053; 80061; 81001; 83721; 84439; 84443; 85027